=== PATIENT | male | born 1930 | race Two or more races ===

== ENCOUNTER → 2017-01-28 | Outpatient (CLI) | payer MEDICARE, OTHER ==
--- NOTE | 2017-01-31 11:31 | RADIOLOGY REPORT (SQ) ---
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 RADIONUCLIDE AND DOSE: 12.0 mCi F18 FDG The route of agent administration: Intravenous FASTING BLOOD SUGAR: 100 mg/dl CONTRAST TYPE AND DOSE: No CT contrast given. TECHNIQUE: Blood glucose level was verified. Above dose of FDG was injected intravenously. 2-D seg mented attenuation correction images were obtained from the base of the skull to the midthighs. Nonc ontrast CT images were obtained for attenuation correction and fusion with emission images. CT image s were performed without oral or intravenous contrast and are not sensitive for parenchymal lesions. A series of overlapping emission PET images were obtained. Images reviewed and manipulated at [facility] work station by the radiologist. Images stored on PACS. LIMITATIONS: None. FINDINGS: HEAD AND NECK: Left supraclavicular lymph node adjacent to the thyroid with mean SUV value 1.75. Prior value 6.9. CHEST: Previously seen small left pleural effusion has resolved. Generally improved aeration in the lungs. Underlying scarring. No pulmonary nodules or masses. No adenopathy. No abnormal metabolic activity. ABDOMEN AND PELVIS: Previously seen right retrocrural lymph node has decreased in size and currently demonstrates no detectable increased activity. Retrocaval lymph node with mean SUV value 3.6. Prior value 5.1. Lymph node adjacent to the aorta and anterior to the inferior vena cava currently measur es 6 mm with no detectable metabolic activity. Previous measurement 1.8 cm with SUV 5.8. Lymph node s posterior to the right common iliac artery measure 1.5 cm with mean SUV value 3.29. Prior SUV valu e 6.8. Bulky lymph nodes along the right iliac chain with maximum measurement of 2 cm and maximum BERRY V value 4.36. Prior value 9.1. Lymph nodes in the right inguinal region have generally decreased in size. The largest measures 2.5 x 3.5 cm. Mean SUV value 5.41 with prior value 10.0. PROXIMAL LOWER EXTREMITIES: No areas of abnormal metabolic activity in the soft tissues of the lower extremities. CT images demonstrate asymmetric subcutaneous edema in the soft tissues of the upper ri ght lower extremity. Similar but more prominent compared to the prior study. BONES: No abnormal metabolic activity in the visualized skeleton. ADDITIONAL CT FINDINGS: Chronic pulmonary fibrosis. Renal cysts. Radiotherapy implants in the prost ate. Chronic degenerative changes in the spine with interval kyphoplasty. OTHER: No other significant findings. IMPRESSION: 1. ADENOPATHY DESCRIBED WHICH HAS GENERALLY IMPROVED COMPARED TO THE MOST RECENT PET SCAN. 2. ASYMMETRIC EDEMA IN THE SUBCUTANEOUS SOFT TISSUES OF THE UPPER RIGHT LOWER EXTREMITY. SIMILAR TO THE PRIOR CT BUT SLIGHTLY MORE PROMINENT. THIS MAY BE RELATED TO OBSTRUCTED LYMPHATIC OR VENOUS DRAI NAGE. 3. STABLE INCIDENTAL CT FINDINGS DESCRIBED. IMPROVED APPEARANCE OF THE CHEST WITH IMPROVED AERATI ON IN THE LUNGS AND RESOLUTION OF THE PREVIOUSLY SEEN SMALL LEFT PLEURAL EFFUSION. TECHNICAL DOCUMENTATION: JOB ID: [id number] [employer]- All Rights Reserved
== END ==
LOC: RAD 16:19
PROVIDERS: ATTEND Internal Medicine Medical Oncology
DX: C61 Malignant neoplasm of prostate (principal); C79.51 Secondary malignant neoplasm of bone
CPT/HCPCS: 78815; A9552

== ENCOUNTER → 2017-02-04 | Outpatient (CLI) | payer OTHER ==
--- NOTE | 2017-02-04 16:43 | RADIOLOGY REPORT (SQ) ---
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 The route of agent administration: Intravenous. ADDITIONAL DRUGS AND DOSES: None. TECHNIQUE: Routine delayed images at 3 hours post radionuclide injection acquired of the bony skelet on including anterior and posterior whole-body projections and additional focused images as needed. LIMITATIONS: Patient was unable to tolerate imaging to include the peak and lower legs. Motion cassi fact over the calvarium. FINDINGS: BONES: There is bandlike increased uptake at L4 worrisome for osteoporotic compression def ormity. Similar findings are present along the upper endplate of the L5 vertebral body, and in the m id thoracic spine at about the T7 level. No skeletal uptake worrisome for bony metastatic disease. KIDNEYS: Symmetric excretion without obstruction. OTHER: There is diffuse soft tissue swelling and retention of agent throughout the right leg likely d ue to disrupted lymphatic circulation from inguinal and iliac adenopathy. 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 COMMENT: PQRS 3570F: Current bone scan is compared with any available plain radiographs, prior bone scans, and CT/MRI. TECHNICAL DOCUMENTATION: JOB ID: [id number] All Rights Reserved
== END ==
LOC: RAD 09:27
PROVIDERS: ATTEND Internal Medicine Medical Oncology
DX: C61 Malignant neoplasm of prostate (principal); C79.51 Secondary malignant neoplasm of bone
CPT/HCPCS: 78306; A9561; Q9969

== ENCOUNTER 2017-02-13 10:23 | Inpatient (IN) | payer OTHER, MEDICARE ==
[2017-02-13] MEDS ORDERED: NORMAL SALINE 1000 ML 300 ML IV ONE (10:40)
--- NOTE | 2017-02-13 10:59 | ER Document Report ---
ED General - General Stated Complaint: ALTERED MENTAL STATUS Time Seen by Provider: 02/13/17 10:36 Mode of Arrival: Medic Information source: Patient, Relative, Emergency Med Personnel TRAVEL OUTSIDE OF THE [place] IN LAST 30 DAYS: No - HPI Onset: This morning - 4 AM Onset/Duration: Constant, Waxing and waning Severity: None Associated symptoms: Fever, Weakness, Other - CONFUSED Exacerbated by: Denies Relieved by: Denies Similar symptoms previously: Yes - NOT RECENT Recently seen / treated by doctor: No - Related Data Allergies/Adverse Reactions: No Known Drug Allergies Allergy (Verified 02/13/17 11:01) Home Medications: Current Home Medications Oxycodone HCl/Acetaminophen [Oxycodone-Acetaminophen 5-325] 1 each PO Q8 PRN [History] Prednisone 5 mg PO BID 02/13/17 [History] Simvastatin 20 mg PO QHS 02/13/17 [History] Past Medical History - General Information source: Patient, Relative - Social History Smoking Status: Unknown if Ever Smoked Cigarette use (# per day): No Chew tobacco use (# tins/day): No Frequency of alcohol use: None Drug Abuse: None Lives with: Family Family History: Reviewed & Not Pertinent - Past Medical History Cardiac Medical History: Reports: Hx Hypercholesterolemia, Hx Hypertension Denies: Hx Coronary Artery Disease, Hx Heart Attack Pulmonary Medical History: Reports: Hx Pneumonia Denies: Hx Asthma, Hx Bronchitis, Hx COPD Neurological Medical History: Denies: Hx Cerebrovascular Accident, Hx Seizures Endocrine Medical History: Reports: None Renal/ Medical History: Reports: None Malignancy Medical History: Reports Hx Prostate Cancer GI Medical History: Reports: Hx Gastroesophageal Reflux Disease, Hx Hepatitis - HEP C APPX 12 MOS AGO. Denies: Hx Hiatal Hernia, Hx Ulcer Musculoskeltal Medical History: Denies Hx Arthritis Psychiatric Medical History: Denies: Hx Depression Infectious Medical History: Reports: Hx Hepatitis - HEP C APPX 12 MOS AGO Past Surgical History: Reports: Hx Genitourinary Surgery - radiation seed implant. Denies: Hx Open Heart Surgery, Hx Pacemaker - Immunizations Hx Diphtheria, Pertussis, Tetanus Vaccination: No Hx Pneumococcal Vaccination: 08/22/05 Review of Systems - Review of Systems Constitutional: Diaphoresis, Fever EENT: No symptoms reported Cardiovascular: No symptoms reported Respiratory: No symptoms reported Gastrointestinal: No symptoms reported Genitourinary: No symptoms reported Musculoskeletal: No symptoms reported Skin: No symptoms reported Neurological/Psychological: Confusion -: Yes All other systems reviewed and negative Physical Exam - Vital signs Vitals: Temp 98.1 F 02/13/17 10:23 Interpretation: Hypotensive, Tachycardic, Febrile - General General appearance: Lethargic In distress: None - HEENT Head: Normocephalic Eyes: Pale conjunctiva Pupils: PERRL Ears: Normal Nasal: Normal Mouth/Lips: Normal Mucous membranes: Dry Pharynx: Normal Neck: Normal, Supple - Respiratory Respiratory status: No respiratory distress, Other - POOR INSPIRATORY EFFORT Breath sounds: Decreased air movement - RIGHT Chest palpation: Normal - Cardiovascular Rhythm: Regular, Tachycardia Heart sounds: Normal auscultation Murmur: No - Abdominal Inspection: Normal Distension: No distension - Extremities General upper extremity: Normal inspection General lower extremity: No: Normal inspection - STASIS DERMATITIS R. L.E. - Neurological Cognition: Confused - EARLIER, NOW RESOLVED Speech: Normal Cranial nerves: Normal Motor strength normal: LUE, RUE - Skin Skin Temperature: Warm Skin Moisture: Dry Skin Color: Normal, Hyperpigmentation - R. L.E. Skin Turgor: Elastic Course - Vital Signs Vital signs: Temp Pulse Resp BP Pulse Ox 98.1 F 14 94/49 L 97 02/13/17 10:29 02/13/17 11:01 02/13/17 10:35 02/13/17 11:01 - Laboratory Result Diagrams: 02/13/17 10:35 02/13/17 10:35 Laboratory results interpreted by me: 02/13/17 02/13/17 10:35 10:35 WBC 0.6 L* RBC 2.77 L Hgb 9.6 L Hct 28.4 L MCV 102 H MCH 34.6 H RDW 19.5 H Plt Count 94 L Seg Neutrophils % 20.6 L Monocytes % 41.3 H Absolute Neutrophils 0.1 L Absolute Lymphocytes 0.2 L Sodium 131.3 L Potassium 3.0 L* BUN 23 H Calcium 7.6 L Total Bilirubin 2.1 H Total Protein 4.4 L Albumin 2.3 L - Diagnostic Test Radiology reviewed: Image reviewed, Reports reviewed - EKG Interpretation by Me EKG shows normal: Sinus rhythm, Rhodes, Intervals, ST-T Waves. 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 Time consulted: 11:46 Consulted provider: will come to ER Discharge - Discharge Clinical Impression: Prostate cancer, Delirium Sepsis Qualifiers: Sepsis type: sepsis due to unspecified organism Qualified Code(s): A41.9 - Sepsis, unspecified organism Fever Qualifiers: Fever type: unspecified Qualified Code(s): R50.9 - Fever, unspecified Hypotension Qualifiers: Hypotension type: unspecified hypotension type Qualified Code(s): I95.9 - Hypotension, unspecified Neutropenia Qualifiers: Neutropenia type: unspecified Qualified Code(s): D70.9 - Neutropenia, unspecified Condition: Serious Disposition: ADMITTED INPATIENT Admitting Provider: Hospitalist Referrals: AMANDO SILVA DO [Primary Care Provider] - Follow up as needed
[2017-02-13] MEDS ORDERED: DEXTROSE 5%-WATER 250 ML with NOREPINEPHRINE BITARTRATE 4 MG IV PRN ×4 (11:07→15:09)
[2017-02-13] MEDS ORDERED: CEFEPIME 2 GM/D5W RTU 50 ML IV ONE (11:16)
[2017-02-13 11:18] LABS: ALANINE AMINOTRANSFERASE 27 U/L (21-72); ALBUMIN 2.3 g/dL (3.5-5.0); ALKALINE PHOSPHATASE 45 U/L (38-126); ANION GAP 7 (5-19); ASPARTATE AMINO TRANSFERASE 27 U/L (17-59); BILIRUBIN,DIRECT 0.3 mg/dL (0.0-0.4); BILIRUBIN,TOTAL 2.1 mg/dL (0.2-1.3); BLOOD UREA NITROGEN 23 mg/dL (7-20); CALCIUM 7.6 mg/dL (8.4-10.2); CARBON DIOXIDE 23 mmol/L (22-30); CHLORIDE 101 mmol/L (98-107); CREATINE KINASE 57 U/L (55-170); CREATININE RESULT 0.83 mg/dL (0.52-1.25); GLUCOSE 90 mg/dL (75-110); SODIUM 131.3 mmol/L (137-145); TOTAL PROTEIN 4.4 g/dL (6.3-8.2)
[2017-02-13] MEDS ORDERED: NOREPINEPHRINE BITARTRATE INJ/PF 4 MG/4 ML SDV IV ONE (11:22)
[2017-02-13 11:27] LABS: ABSOLUTE LYMPHOCYTES (AUTO) 0.2 10^3/uL (0.5-4.7); ABSOLUTE MONOCYTES (AUTO) 0.2 10^3/uL (0.1-1.4); ABSOLUTE NEUT (AUTO) 0.1 10^3/uL (1.7-8.2); BASOPHILS % (AUTO) 0.2 % (0-2); EOSINOPHILS % (AUTO) 0.2 % (0-6); HEMATOCRIT 28.4 % (37.9-51.0); HEMOGLOBIN 9.6 g/dL (13.5-17.0); HGB HCT DIFFERENCE 0.4; LYMPHOCYTES % (AUTO) 37.7 % (13-45); MEAN CORPUSCULAR HEMOGLOBIN 34.6 pg (27.0-33.4); MEAN CORPUSCULAR HGB CONC 33.7 g/dL (32.0-36.0); MEAN CORPUSCULAR VOLUME 102 fl (80-97); MONOCYTES % (AUTO) 41.3 % (3-13); RED BLOOD COUNT 2.77 10^6/uL (4.35-5.55); RED CELL DISTRIBUTION WIDTH 19.5 % (11.5-14.0)
[2017-02-13 11:30] LABS: CREATINE KINASE MB 0.68 ng/mL (<4.55)
[2017-02-13 11:31] LABS: TROPONIN I 0.151 ng/mL
--- NOTE | 2017-02-13 11:35 | RADIOLOGY REPORT (SQ) ---
EXAM DESCRIPTION: CHEST SINGLE VIEW COMPLETED DATE/TIME: 02/13/2017 11:15 am REASON FOR STUDY: FEVER, ALTERED MENTAL STATUS COMPARISON: 05/08/2015 EXAM PARAMETERS: NUMBER OF VIEWS: One view. TECHNIQUE: Single frontal radiographic view of the chest acquired. RADIATION DOSE: NA LIMITATIONS: None. FINDINGS: LUNGS AND PLEURA: Scarring in the right apex. No acute opacities. No effusions. MEDIASTINUM AND HILAR STRUCTURES: No masses. Contour normal. HEART AND VASCULAR STRUCTURES: Heart normal in size. Normal vasculature. BONES: No acute findings. HARDWARE: None in the chest. OTHER: No other significant finding. IMPRESSION: NO ACUTE RADIOGRAPHIC FINDING IN THE CHEST. TECHNICAL DOCUMENTATION: JOB ID: [id number]
[2017-02-13] MEDS ORDERED: MAGNESIUM HYDROXIDE SUSP 30 ML UDCUP PO PRN (11:46)
[2017-02-13] MEDS ORDERED: ACETAMINOPHEN 325 MG TABLET PO PRN (11:46)
[2017-02-13] MEDS ORDERED: IPRATROPIUM/ALBUTEROL 0.5-2.5 MG/3 ML AMPUL NEB PRN (11:46)
[2017-02-13] MEDS ORDERED: ONDANSETRON HCL INJ/PF 4 MG/2 ML SDV IV PRN (11:46)
[2017-02-13 11:48] LABS: ANISOCYTOSIS 1+
[2017-02-13 11:49] LABS: OVALOCYTES SLIGHT; POIKILOCYTOSIS SLIGHT; POLYCHROMASIA SLIGHT
[2017-02-13 11:52] LABS: WHITE BLOOD COUNT 0.6 10^3/uL (4.0-10.5)
[2017-02-13 11:53] LABS: SEGMENTED NEUTROPHILS % (AUTO) 20.6 % (42-78)
[2017-02-13 12:00] LABS: APPEARANCE,URINE CLEAR; BILIRUBIN,URINE NEGATIVE (NEGATIVE); GLUCOSE, URINE NEGATIVE (NEGATIVE); KETONES,URINE NEGATIVE (NEGATIVE); LEUKOCYTE ESTERASE,URINE NEGATIVE (NEGATIVE); NITRITE,URINE NEGATIVE (NEGATIVE); PROTEIN,URINE NEGATIVE (NEGATIVE); URINE SPECIFIC GRAVITY 1.012; UROBILINOGEN,URINE NEGATIVE mg/dL (<2.0)
[2017-02-13 12:05] LABS: WBC,URINE 0-1 /HPF
[2017-02-13] MEDS ORDERED: VANCOMYCIN HCL 0 MG in DEXTROSE 5%-WATER 250 ML IV NR (12:15)
[2017-02-13] MEDS ORDERED: ERTAPENEM SODIUM 1 GM in NORMAL SALINE 50 ML IV SCH (12:15)
[2017-02-13] MEDS ORDERED: VANCOMYCIN HCL 1,500 MG in DEXTROSE 5%-WATER 250 ML IV ONE (13:00)
[2017-02-13] MEDS ORDERED: POTASSIUM CHLORIDE 10 MEQ TABLET.SA PO ONE (13:00)
[2017-02-13] MEDS ORDERED: POTASSI CL 20 MEQ/50 ML RIDER 20 MEQ/50 ML RTUPB IV SCH (13:00)
[2017-02-13] MEDS ORDERED: MORPHINE SULFATE 10 MG/ML INJ IV PRN (14:03)
[2017-02-13] MEDS ORDERED: OXYCODONE-ACETAMINOPHEN 5-325 MG TABLET PO PRN (14:38)
--- NOTE | 2017-02-13 14:38 | PDOC H&P ---
History of Present Illness Admission Date/PCP: 02/13/17 12:41 AMANDO SILVA DO Patient complains of: Fever, weakness and confusion History of Present Illness: AARTI BARON is a 86 year old male past medical history metastatic prostate cancer, on systemic chemotherapy, essential hypertension and dyslipidemia; presents with fever, weakness and confusion since 4 AM this morning. Patient seen by Dr. Story, he has no other primary care physician. His last chemotherapy was a week ago on Tuesday. He denies any cough, chest congestion , nausea, vomiting diarrhea or dysuria. He has had prior episodes of neutropenic fever in the past. He was found to have temperature on arrival of 101 tympanic, heart rate in the 120s systolic blood pressure in the 80-90 systolic range. Blood pressure did improve with IV fluid bolus by the ER provider. He is presently awake, alert and able to answer questions. He has been started on IV broad-spectrum antibiotics after blood cultures were obtained. Past Medical History Cardiac Medical History: Reports: Hyperlipidema, Hypertension Denies: Coronary Artery Disease, Myocardial Infarction Pulmonary Medical History: Reports: Pneumonia Denies: Asthma, Bronchitis, Chronic Obstructive Pulmonary Disease (COPD) EENT Medical History: Reports: None Neurological Medical History: Reports: None Denies: Seizures Endocrine Medical History: Reports: None Renal/ Medical History: Reports: None Malignancy Medical History: Reports: Other - metastatic prostrate cancer GI Medical History: Reports: Gastroesophageal Reflux Disease, Hepatitis - HEP C APPX 12 MOS AGO Denies: Hiatal Hernia Musculoskeltal Medical History: Denies: Arthritis Skin Medical History: Reports: Other - Extensive radiation changes to right lower extremity. Psychiatric Medical History: Reports: None Denies: Depression Traumatic Medical History: Reports: None Hematology: Denies: Anemia Infectious Medical History: Reports: None Past Surgical History Past Surgical History: Denies: Pacemaker Social History Information Source: Patient, Relative Lives with: Family, Spouse/Significant other Smoking Status: Unknown if Ever Smoked Frequency of Alcohol Use: None Hx Recreational Drug Use: No Hx Prescription Drug Abuse: No - Advance Directive Resuscitation Status: Do Not Resuscitate Family History Family History: Hyperlipidemia, Hypertension Parental Family History Reviewed: Yes Children Family History Reviewed: Yes Sibling(s) Family History Reviewed.: Yes Medication/Allergy Home Medications: Meclizine HCl 25 mg PO Q8 PRN 09/08/14 Omeprazole 20 mg PO BID 09/08/14 Oxycodone HCl/Acetaminophen [Oxycodone-Acetaminophen 5-325] 1 each PO Q8 PRN Prednisone 5 mg PO BID 02/13/17 Simvastatin 20 mg PO QHS 02/13/17 Allergies/Adverse Reactions: No Known Drug Allergies Allergy (Verified 02/13/17 11:01) Review of Systems Constitutional: PRESENT: anorexia, chills, fatigue, fever(s), weakness Eyes: PRESENT: as per HPI Ears: ABSENT: hearing changes Cardiovascular: ABSENT: chest pain, dyspnea on exertion, edema, orthropnea, palpitations Respiratory: ABSENT: cough, hemoptysis Gastrointestinal: ABSENT: abdominal pain, constipation, diarrhea, hematemesis, hematochezia, nausea, vomiting Genitourinary: PRESENT: difficulty urinating Musculoskeletal: PRESENT: back pain, deformity - right lower leg Integumentary: ABSENT: rash, wounds Neurological: ABSENT: abnormal gait, abnormal speech, confusion, dizziness, focal weakness, syncope Psychiatric: ABSENT: anxiety, depression, homidical ideation, suicidal ideation Endocrine: ABSENT: cold intolerance, heat intolerance, polydipsia, polyuria Hematologic/Lymphatic: PRESENT: easy bruising Physical Exam Vital Signs: Temp Pulse Resp BP Pulse Ox 101.1 F H 14 106/42 L 98 02/13/17 13:40 02/13/17 13:40 02/13/17 13:40 02/13/17 13:40 General appearance: PRESENT: no acute distress, hard of hearing, thin, well- developed, other - elderly, frail Head exam: PRESENT: atraumatic, normocephalic Eye exam: PRESENT: conjunctiva pale, PERRLA Ear exam: PRESENT: normal external ear exam Mouth exam: PRESENT: dry mucosa, neck supple, tongue midline Teeth exam: PRESENT: edentulous Neck exam: ABSENT: carotid bruit, JVD, lymphadenopathy, thyromegaly Respiratory exam: PRESENT: clear to auscultation aracely, decreased breath sounds, symmetrical, unlabored. ABSENT: rales, rhonchi, wheezes Cardiovascular exam: PRESENT: RRR, tachycardia Pulses: PRESENT: normal carotid pulses, normal radial pulses Vascular exam: PRESENT: normal capillary refill GI/Abdominal exam: PRESENT: normal bowel sounds, soft. ABSENT: distended, guarding, mass, organolmegaly, rebound, tenderness Rectal exam: PRESENT: deferred Extremities exam: PRESENT: full ROM. ABSENT: calf tenderness, clubbing, pedal edema Musculoskeletal exam: PRESENT: ambulatory, other - right lower extremity Neurological exam: PRESENT: alert, awake, oriented to person, oriented to place , oriented to situation, CN II-XII grossly intact Psychiatric exam: PRESENT: appropriate affect, normal mood Skin exam: PRESENT: pallor, other Results Impressions: Chest X-Ray 02/13/17 10:39 IMPRESSION: NO ACUTE RADIOGRAPHIC FINDING IN THE CHEST. Assessment & Plan - Diagnosis (1) Neutropenic fever Is this a current diagnosis for this admission?: YesPlan: Patient will be placed on broad culture IV antibiotics after urine and blood cultures were obtained. Oncology will be consulted for neutropenia. Patient will be placed in reverse isolation. Family updated on this as well (2) Sepsis Qualifiers: Sepsis type: sepsis due to unspecified organism Qualified Code(s): A41.9 - Sepsis, unspecified organism Is this a current diagnosis for this admission?: YesPlan: IV broad spectrum antibiotic, patient was given aggressive IV hydration by the ER provider with improvement of his blood pressure to systolic of 110. Will continue to hydrate (3) Hypotension Qualifiers: Hypotension type: unspecified hypotension type Qualified Code(s): I95.9 - Hypotension, unspecified Is this a current diagnosis for this admission?: YesPlan: Secondary to infection and dehydration. (4) Hyponatremia Is this a current diagnosis for this admission?: YesPlan: Likely secondary to decreased oral intake over the last week according to family. Will continue to gently rehydrate with IV fluids (5) Hypokalemia Is this a current diagnosis for this admission?: YesPlan: Will replete and monitor (6) HLD (hyperlipidemia) Qualifiers: Hyperlipidemia type: unspecified Qualified Code(s): E78.5 - Hyperlipidemia, unspecified Is this a current diagnosis for this admission?: YesPlan: Will continue statin (7) Metastasis to bone Is this a current diagnosis for this admission?: YesPlan: Prn analagesics (8) DNR (do not resuscitate) Is this a current diagnosis for this admission?: YesPlan: Patient has written DNR order - Time Time Spent: 50 to 70 Minutes Critical Time spent with patient: 35 or more minutes Medications reviewed and adjusted accordingly: Yes
[2017-02-13] MEDS ORDERED: ACETAMINOPHEN 650 MG SUPP.RECT PR PRN (14:39)
[2017-02-13] MEDS ORDERED: NORMAL SALINE 1000 ML 1,000 ML IV ONE (14:58)
[2017-02-13] MEDS ORDERED: PIPERACILLIN SODIUM/TAZOBACTAM 3.375 GM in NORMAL SALINE 100 ML IV SCH (15:00)
--- NOTE | 2017-02-13 15:16 | EKG REPORT ---
SEVERITY:- ABNORMAL ECG - SINUS TACHYCARDIA RIGHT BUNDLE BRANCH BLOCK : Confirmed by: Irene Flores 13-Feb-2017 15:15:18
[2017-02-13] MEDS: POTASSI CL 20 MEQ/50 ML RIDER 20 MEQ/50 ML RTUPB IV SCH ×3 (15:42→20:29)
[2017-02-13] MEDS ORDERED: HYDROCORTISONE SOD SUCCINATE INJ/PF 100 MG/2 ML SDV IV SCH ×3 (18:00→22:00)
[2017-02-13] MEDS ORDERED: PREDNISONE 5 MG TABLET PO SCH (18:00)
[2017-02-13] MEDS ORDERED: DOCUSATE SODIUM 100 MG/10 ML UDC PO SCH (18:00)
[2017-02-13] MEDS: LANSOPRAZOLE 30 MG TAB.RAP.DR PO SCH (18:02)
[2017-02-13] MEDS: DOCUSATE SODIUM 100 MG CAPSULE PO SCH (18:02)
[2017-02-13] MEDS ORDERED: FILGRASTIM INJ 300 MCG/1 ML VIAL SUBCUT ONE (18:59)
[2017-02-13] MEDS ORDERED: HYDROCORTISONE SOD SUCCINATE INJ/PF 100 MG/2 ML SDV IV ONE (19:00)
[2017-02-13 19:42] LABS: ANION GAP 9 (5-19); BLOOD UREA NITROGEN 25 mg/dL (7-20); CARBON DIOXIDE 16 mmol/L (22-30); CHLORIDE 109 mmol/L (98-107); CREATININE RESULT 0.81 mg/dL (0.52-1.25); GLUCOSE 90 mg/dL (75-110); POTASSIUM 3.8 mmol/L (3.6-5.0)
[2017-02-13 19:50] LABS: CALCIUM 6.9 mg/dL (8.4-10.2)
[2017-02-13] MEDS: LEVOFLOXACIN 750 MG/D5W RTU 750 MG/150 ML RTUPB IV SCH (19:59)
[2017-02-13] MEDS: POTASSI CL 20 MEQ/NS 1L 1,000 ML IV PRN (20:01)
[2017-02-13] MEDS ORDERED: MAGNESIUM SULFATE/D5W 1 GM/100 ML RTUPB IV ONE (20:45)
[2017-02-13] MEDS: SIMVASTATIN 10 MG TABLET PO SCH (21:12)
[2017-02-13] MEDS ORDERED: CEFEPIME 2 GM/D5W RTU 2 GM/50 ML RTUPB IV ONE (21:31)
[2017-02-13] MEDS ORDERED: VANCOMYCIN HCL INJ 1000 MG VIAL ONE (21:31)
[2017-02-13] MEDS: CEFEPIME 2 GM/D5W RTU 2 GM/50 ML RTUPB IV SCH (21:39)
[2017-02-13] MEDS ORDERED: SIMVASTATIN 40 MG TABLET PO SCH (22:00)
[2017-02-13] MEDS: VANCOMYCIN HCL 750 MG in DEXTROSE 5%-WATER 250 ML IV SCH (23:00)
[2017-02-14] MEDS: HYDROCORTISONE SOD SUCCINATE INJ/PF 100 MG/2 ML SDV IV SCH ×3 (01:10→17:23)
[2017-02-14] MEDS: ACETAMINOPHEN SOLN 325 MG/10.15 ML UDCUP PO PRN (02:37)
[2017-02-14] MEDS: LANSOPRAZOLE 30 MG TAB.RAP.DR PO SCH ×2 (06:06→17:23)
[2017-02-14 07:57] LABS: ANION GAP 7 (5-19); BLOOD UREA NITROGEN 24 mg/dL (7-20); CALCIUM 7.3 mg/dL (8.4-10.2); CARBON DIOXIDE 19 mmol/L (22-30); CHLORIDE 106 mmol/L (98-107); CREATININE RESULT 0.73 mg/dL (0.52-1.25); GLUCOSE 93 mg/dL (75-110); MAGNESIUM 1.7 mg/dL (1.6-2.3); SODIUM 131.7 mmol/L (137-145)
[2017-02-14] MEDS ORDERED: MAGNESIUM SULFATE/D5W 1 GM/100 ML RTUPB IV ONE (09:00)
[2017-02-14] MEDS ORDERED: ENOXAPARIN SODIUM INJ 30 MG/0.3 ML DISP.SYRIN SUBCUT SCH (10:00)
[2017-02-14] MEDS: POTASSI CL 20 MEQ/NS 1L 1,000 ML IV PRN (10:38)
[2017-02-14] MEDS: CEFEPIME 2 GM/D5W RTU 2 GM/50 ML RTUPB IV SCH ×2 (10:41→21:02)
[2017-02-14] MEDS: DOCUSATE SODIUM 100 MG CAPSULE PO SCH ×2 (10:50→17:24)
[2017-02-14] MEDS: VANCOMYCIN HCL 750 MG in DEXTROSE 5%-WATER 250 ML IV SCH (12:28)
[2017-02-14 15:04] LABS: ABSOLUTE LYMPHOCYTES (AUTO) 0.1 10^3/uL (0.5-4.7); ABSOLUTE MONOCYTES (AUTO) 0.1 10^3/uL (0.1-1.4); ABSOLUTE NEUT (AUTO) 0.5 10^3/uL (1.7-8.2); BASOPHILS % (AUTO) 0.4 % (0-2); EOSINOPHILS % (AUTO) 0.8 % (0-6); HEMATOCRIT 28.1 % (37.9-51.0); HEMOGLOBIN 9.6 g/dL (13.5-17.0); HGB HCT DIFFERENCE 0.7; LYMPHOCYTES % (AUTO) 16.9 % (13-45); MEAN CORPUSCULAR HEMOGLOBIN 34.9 pg (27.0-33.4); MEAN CORPUSCULAR HGB CONC 34.2 g/dL (32.0-36.0); MEAN CORPUSCULAR VOLUME 102 fl (80-97); MONOCYTES % (AUTO) 15.7 % (3-13); RED BLOOD COUNT 2.75 10^6/uL (4.35-5.55); SEGMENTED NEUTROPHILS % (AUTO) 66.2 % (42-78)
--- NOTE | 2017-02-14 15:05 | RADIOLOGY REPORT (SQ) ---
EXAM DESCRIPTION: PICC INSERTION; U/S GUIDE FOR VASCULAR ACCESS COMPLETED DATE/TIME: 02/14/2017 2:50 pm REASON FOR STUDY: PICC line placement; PICC LINE PLACEMENT COMPARISON: Chest films 02/13/2017 FLUOROSCOPY TIME: Bedside, no fluoroscopy was used On ultrasound and 4 digital chest images saved to PACS. TECHNIQUE: Fluoroscopic and ultrasound guided PICC placement. LIMITATIONS: None. PROCEDURE: Consent was obtained. Ultrasound was used on the patient's left arm for PICC access. The left arm was prepped and draped in a sterile fashion along with the ultrasound probe. The entry site was anesthetized with 2.5 mL of 1% lidocaine. A 21 gauge 7 cm needle was advanced through the skin a nd into the left basilic vein under live ultrasound guidance. An ultrasound image was saved to PACS confirming access site. A .018 guide wire was then inserted through the needle and into the venous s ystem. The needle was the removed and an 11 blade scalpel was used to make a 1cm skin incision. A 5 fr peel-away sheath was advanced over the wire and into the venous system. A measurement was then mad e using the existing wire and live fluoroscopic guidance. The wire was then removed and the trimmed. The PICC was advanced through the peel-away sheath and into the venous system. The peel-away sheath w as removed and the catheter was adhered to the patients arm with a stat lock. The catheter was then a spirated and flushed and a sterile bandage was placed over the access site. A fluoroscopic spot imag e was saved to PACS confirming the catheter tip within the superior vena cava. IMPRESSION: SUCCESSFUL PLACEMENT OF A 5 FR DUAL LUMEN 41 CM PICC IN THE left basilic VEIN. COMMENT: Patient medication list reviewed: Yes- Quality ID# [id number]:Eligible professional attests to doc umenting in the medical record they obtained, updated, or reviewed the patient's current medications. . Quality ID 145: Final reports for procedures using fluoroscopy that document radiation exposure es aylin, or exposure time and number of fluorographic images (if radiation exposure indices are not avail able) Quality ID #76: The patient was prepped and draped using maximum sterile barrier technique including cap, mask, sterile gown, sterile gloves, a large sterile sheet, hand hygiene, and 2% Chlorhexidine fo r cutaneous antisepsis. When ultrasound is used, sterile ultrasound techniques are followed requiring sterile gel and sterile probes. TECHNICAL DOCUMENTATION: JOB ID: [id number] [employer] All Rights Reserved
[2017-02-14] MEDS ORDERED: ONDANSETRON HCL INJ/PF 4 MG/2 ML SDV IV PRN (15:07)
[2017-02-14] MEDS ORDERED: MAGNESIUM HYDROXIDE SUSP 30 ML UDCUP PO PRN (15:08)
[2017-02-14 15:29] LABS: WHITE BLOOD COUNT 0.7 10^3/uL (4.0-10.5)
[2017-02-14 15:32] LABS: BURR CELLS 1+; OVALOCYTES 2+; POIKILOCYTOSIS 2+; ROULEAUX SLIGHT; SCHISTOCYTES SLIGHT; TOXIC GRANULATION 2+
--- NOTE | 2017-02-14 15:51 | PDOC PROGRESS REPORT ---
Subjective Progress Note for:: 02/14/17 Subjective:: Patient is seen on morning rounds. He is resting comfortably in bed. He remains in reverse isolation in the ICU due to neutropenic fever. He was able to be wean off vasopressor overnight. His hypotension and fever has resolved. He denies any shortness of breath, cough or dyspnea. He has been able to eat and drink without nausea or vomiting. He had one episode of diarrhea last night. Stool was sent for cdiff which is reported as negative. He has had no further diarrhea. He denies any dysuria prior to admission. He admits to not eating or drinking much for the last 4 days prior to admission. He has chronic lymphedema and skin changes in the right lower leg from radiation therapy. He states this is unchanged from previously. His or son are not at the bedside at the present time. Physical Exam Vital Signs: Temp Pulse Resp BP Pulse Ox 98.8 F 112 H 12 98/67 L 97 02/14/17 14:00 02/14/17 07:46 02/14/17 14:00 02/14/17 13:45 02/14/17 14:00 Intake & Output 02/13/17 02/14/17 02/15/17 06:59 06:59 06:59 Intake Total 4218 60 Output Total 1075 224 Balance 3143 -164 Weight 74.7 kg General appearance: PRESENT: no acute distress, thin, well-developed, well- nourished, other - elderly and frail Head exam: PRESENT: atraumatic, normocephalic Eye exam: PRESENT: conjunctiva pale, PERRLA Ear exam: PRESENT: normal external ear exam Mouth exam: PRESENT: moist, neck supple, tongue midline Neck exam: ABSENT: carotid bruit, JVD, lymphadenopathy, thyromegaly Respiratory exam: PRESENT: clear to auscultation aracely, symmetrical, unlabored. ABSENT: rales, rhonchi, wheezes Cardiovascular exam: PRESENT: RRR. ABSENT: diastolic murmur, rubs, systolic murmur Pulses: PRESENT: normal carotid pulses, normal radial pulses Vascular exam: PRESENT: normal capillary refill GI/Abdominal exam: PRESENT: normal bowel sounds, soft Rectal exam: PRESENT: deferred Extremities exam: PRESENT: full ROM, other - +3 edema of the right leg, with chronic skin changes from radiation therapy Neurological exam: PRESENT: alert, awake, oriented to person, oriented to place , CN II-XII grossly intact. ABSENT: motor sensory deficit Psychiatric exam: PRESENT: appropriate affect, normal mood. ABSENT: homicidal ideation, suicidal ideation Skin exam: PRESENT: dry - right lower leg, erythema, warm Results Laboratory Results: 02/14/17 14:50 02/14/17 07:23 02/13/17 02/13/17 02/13/17 19:02 19:02 19:02 WBC RBC Hgb Hct MCV MCH MCHC RDW Plt Count Seg Neutrophils % Lymphocytes % Monocytes % Eosinophils % Basophils % Absolute Neutrophils Absolute Lymphocytes Absolute Monocytes Absolute Eosinophils Absolute Basophils Sodium 134.0 L Potassium 3.8 Chloride 109 H Carbon Dioxide 16 L Anion Gap 9 BUN 25 H Creatinine 0.81 Est GFR ( Amer) > 60 Est GFR (Non-Af Amer) > 60 Glucose 90 Calcium 6.9 L* Magnesium 1.5 L Albumin 2.3 L Stool Occult Blood Stool for White Cells 02/13/17 02/13/17 02/14/17 21:09 21:09 06:37 WBC Cancelled RBC Cancelled Hgb Cancelled Hct Cancelled MCV Cancelled MCH Cancelled MCHC Cancelled RDW Cancelled Plt Count Cancelled Seg Neutrophils % Cancelled Lymphocytes % Cancelled Monocytes % Cancelled Eosinophils % Cancelled Basophils % Cancelled Absolute Neutrophils Cancelled Absolute Lymphocytes Cancelled Absolute Monocytes Cancelled Absolute Eosinophils Cancelled Absolute Basophils Cancelled Sodium Potassium Chloride Carbon Dioxide Anion Gap BUN Creatinine Est GFR ( Amer) Est GFR (Non-Af Amer) Glucose Calcium Magnesium Albumin Stool Occult Blood NEGATIVE Stool for White Cells NO WBCs SEEN 02/14/17 02/14/17 02/14/17 06:37 07:23 14:50 WBC 0.7 L* RBC 2.75 L Hgb 9.6 L Hct 28.1 L MCV 102 H MCH 34.9 H MCHC 34.2 RDW 20.0 H Plt Count 87 L Seg Neutrophils % 66.2 Lymphocytes % 16.9 Monocytes % 15.7 H Eosinophils % 0.8 Basophils % 0.4 Absolute Neutrophils 0.5 L Absolute Lymphocytes 0.1 L Absolute Monocytes 0.1 Absolute Eosinophils 0.0 Absolute Basophils 0.0 Sodium Cancelled 131.7 L Potassium Cancelled 4.0 Chloride Cancelled 106 Carbon Dioxide Cancelled 19 L Anion Gap Cancelled 7 BUN Cancelled 24 H Creatinine Cancelled 0.73 Est GFR ( Amer) Cancelled > 60 Est GFR (Non-Af Amer) Cancelled > 60 Glucose Cancelled 93 Calcium Cancelled 7.3 L Magnesium Cancelled 1.7 Albumin Stool Occult Blood Stool for White Cells 02/13/17 02/13/17 02/14/17 13:27 19:02 01:10 Troponin I 0.152 0.176 0.158 Impressions: Chest X-Ray 02/13/17 10:39 IMPRESSION: NO ACUTE RADIOGRAPHIC FINDING IN THE CHEST. Interventional Vascular Procedure 02/14/17 00:00 IMPRESSION: SUCCESSFUL PLACEMENT OF A 5 FR DUAL LUMEN 41 CM PICC IN THE left basilic VEIN. PICC Line Insertion 02/14/17 11:26 IMPRESSION: SUCCESSFUL PLACEMENT OF A 5 FR DUAL LUMEN 41 CM PICC IN THE left basilic VEIN. Assessment & Plan - Diagnosis (1) Neutropenic fever Is this a current diagnosis for this admission?: YesPlan: Patient will be placed on broad culture IV antibiotics after urine and blood cultures were obtained. Neupogen will be given. Dr Story, will be consulted. Patient will be placed in reverse isolation. Family updated on this as well. Fever has come down. He was able to be weaned off levophed last night. He is no longer hypotensive and tachycardia is improved. (2) Sepsis Qualifiers: Sepsis type: sepsis due to unspecified organism Qualified Code(s): A41.9 - Sepsis, unspecified organism Is this a current diagnosis for this admission?: NoPlan: He is no longer hypotensive, he has now low grade fever and mild tachycardia. His altered mental status is resolved mostly back to his baseline. He has one set of blood cultures positive for gram negative rods. Urine culture is pending. Urinalysis is unremarkable. Chest xray is clear (3) Hypotension Qualifiers: Hypotension type: unspecified hypotension type Qualified Code(s): I95.9 - Hypotension, unspecified Is this a current diagnosis for this admission?: YesPlan: Secondary to infection and dehydration. He required aggressive fluid hydration and levophed overnight (4) Hyponatremia Is this a current diagnosis for this admission?: YesPlan: Likely secondary to decreased oral intake over the last week according to family. Will continue to gently rehydrate with IV fluids. (5) Hypokalemia Is this a current diagnosis for this admission?: YesPlan: Will replete and monitor (6) HLD (hyperlipidemia) Qualifiers: Hyperlipidemia type: unspecified Qualified Code(s): E78.5 - Hyperlipidemia, unspecified Is this a current diagnosis for this admission?: YesPlan: Will continue statin (7) Metastasis to bone Is this a current diagnosis for this admission?: YesPlan: Prn analagesics (8) DNR (do not resuscitate) Is this a current diagnosis for this admission?: YesPlan: Patient has written DNR order. His and he are agreeable to treatment of any reversible conditions. - Time Time Spent with patient: 25-34 minutes Critical Time spent with patient: 25-34 minutes Medications reviewed and adjusted accordingly: Yes
[2017-02-14] MEDS ORDERED: FILGRASTIM INJ 300 MCG/1 ML VIAL SUBCUT ONE (17:00)
[2017-02-14 17:12] LABS: PATH REVIEW PATHOLOGIST REVIEWED
[2017-02-14] MEDS: LEVOFLOXACIN 750 MG/D5W RTU 750 MG/150 ML RTUPB IV SCH (20:00)
[2017-02-14] MEDS: SIMVASTATIN 10 MG TABLET PO SCH (21:02)
[2017-02-14] MEDS: NORMAL SALINE 10 ML SDV (SCHEDULED) IV SCH (21:03)
[2017-02-15] MEDS: VANCOMYCIN HCL 750 MG in DEXTROSE 5%-WATER 250 ML IV SCH ×2 (00:15→14:21)
[2017-02-15] MEDS: MORPHINE SULFATE 10 MG/ML INJ IV PRN ×2 (00:24→04:07)
[2017-02-15] MEDS: HYDROCORTISONE SOD SUCCINATE INJ/PF 100 MG/2 ML SDV IV SCH ×3 (02:02→17:17)
[2017-02-15] MEDS: POTASSI CL 20 MEQ/NS 1L 1,000 ML IV PRN (04:16)
[2017-02-15 05:33] LABS: ANION GAP 7 (5-19); BLOOD UREA NITROGEN 23 mg/dL (7-20); CALCIUM 7.3 mg/dL (8.4-10.2); CARBON DIOXIDE 16 mmol/L (22-30); CHLORIDE 103 mmol/L (98-107); CREATININE RESULT 0.61 mg/dL (0.52-1.25); GLUCOSE 97 mg/dL (75-110); POTASSIUM 3.8 mmol/L (3.6-5.0)
[2017-02-15] MEDS: LANSOPRAZOLE 30 MG TAB.RAP.DR PO SCH ×2 (05:51→17:16)
[2017-02-15 05:56] LABS: HEMATOCRIT 27.8 % (37.9-51.0); HEMOGLOBIN 9.5 g/dL (13.5-17.0); HGB HCT DIFFERENCE 0.7; MEAN CORPUSCULAR HEMOGLOBIN 34.5 pg (27.0-33.4); MEAN CORPUSCULAR HGB CONC 34.2 g/dL (32.0-36.0); MEAN CORPUSCULAR VOLUME 101 fl (80-97); RED BLOOD COUNT 2.75 10^6/uL (4.35-5.55)
[2017-02-15 06:16] LABS: RED CELL DISTRIBUTION WIDTH 19.9 % (11.5-14.0)
[2017-02-15 06:19] LABS: ANISOCYTOSIS 2+; BASOPHILS % (MANUAL) 0 % (0-2); EOSINOPHILS % (MANUAL) 0 % (0-6); LYMPHOCYTES % (MANUAL) 8 % (13-45); TOTAL CELLS COUNTED 50; TOXIC GRANULATION 1+
[2017-02-15 06:20] LABS: OVALOCYTES SLIGHT; POIKILOCYTOSIS 1+; SCHISTOCYTES SLIGHT
[2017-02-15 06:33] LABS: WHITE BLOOD COUNT 1.3 10^3/uL (4.0-10.5)
[2017-02-15] MEDS ORDERED: METOPROLOL TARTRATE PF/INJ 5 MG/5 ML SDV IV ONE (09:57)
--- NOTE | 2017-02-15 10:27 | EKG REPORT ---
SEVERITY:- ABNORMAL ECG - A FIB WITH RVR, VPC AND RBBB : Confirmed by: Irene Flores 15-Feb-2017 10:26:12
[2017-02-15] MEDS: CEFEPIME 2 GM/D5W RTU 2 GM/50 ML RTUPB IV SCH ×2 (10:36→22:08)
[2017-02-15] MEDS: DOCUSATE SODIUM 100 MG CAPSULE PO SCH ×2 (10:36→17:17)
[2017-02-15] MEDS: METOPROLOL TARTRATE 25 MG TABLET PO SCH ×2 (10:36→22:09)
[2017-02-15] MEDS: NORMAL SALINE 10 ML SDV (SCHEDULED) IV SCH ×2 (10:37→22:09)
--- NOTE | 2017-02-15 11:22 | PDOC PROGRESS REPORT ---
Subjective Progress Note for:: 02/15/17 Subjective:: reason for visit: f/u neutropenic fever, poss UTI, GNR bacteremia, met prostate CA, septic shock hospital course: per otehr's notes- "AARTI BARON is a 86 year old male past medical history metastatic prostate cancer, on systemic chemotherapy, essential hypertension and dyslipidemia; presents with fever, weakness and confusion since 4 AM this morning. Patient seen by Dr. Story, he has no other primary care physician. His last chemotherapy was a week ago on Tuesday. He denies any cough, chest congestion, nausea, vomiting diarrhea or dysuria. He has had prior episodes of neutropenic fever in the past. He was found to have temperature on arrival of 101 tympanic, heart rate in the 120s systolic blood pressure in the 80-90 systolic range. Blood pressure did improve with IV fluid bolus by the ER provider. He is presently awake, alert and able to answer questions. He has been started on IV broad-spectrum antibiotics after blood cultures were obtained. He was able to be wean off vasopressor overnight. His hypotension and fever has resolved. He denies any shortness of breath, cough or dyspnea. He has been able to eat and drink without nausea or vomiting. He had one episode of diarrhea last night. Stool was sent for cdiff which is reported as negative. He has had no further diarrhea. He denies any dysuria prior to admission. He admits to not eating or drinking much for the last 4 days prior to admission. He has chronic lymphedema and skin changes in the right lower leg from radiation therapy. He states this is unchanged from previously. His or son are not at the bedside at the present time. " i inherited his care Tuesday and family reports he is improving, still not eating well but denies odynophagia, sore throat, difficulty breathing or swallowing, foul taste in his mouth or coating on his tongue. no fevers documented since arrival to the floor, overall temp curve trending down. review of telemetry shows wide complex tachycardia c/w afib and hemiblock and RVR. no prior hx of same per family. last echo we have is 2013 shows EF 60-65% , grade 2/4 DD, mild MR, trace AR, mold TR, and no discussion of atria. ROS: he denies chest pain, palpitations; gets easily winded and fatigued with minimal exertion, will not eat unless his encourages him and assits. all systems reviewed, see above, remaining systems negative. Physical Exam Vital Signs: Temp Pulse Resp BP Pulse Ox 98.3 F 104 H 12 142/80 H 96 02/15/17 07:19 02/15/17 08:00 02/15/17 07:19 02/15/17 07:19 02/15/17 07:19 Intake & Output 02/14/17 02/15/17 02/16/17 06:59 06:59 06:59 Intake Total 4218 1793 Output Total 1075 924 Balance 3143 869 Weight 74.7 kg 75.8 kg General appearance: PRESENT: no acute distress - ill appearing, well-developed, well-nourished Head exam: PRESENT: atraumatic, normocephalic Eye exam: PRESENT: EOMI. ABSENT: conjunctival injection, scleral icterus Neck exam: PRESENT: full ROM. ABSENT: JVD Respiratory exam: PRESENT: crackles - R>L bases, decreased breath sounds. ABSENT: stridor, unlabored, wheezes Cardiovascular exam: PRESENT: irregular rhythm, tachycardia. ABSENT: systolic murmur Pulses: PRESENT: normal radial pulses, normal dorsalis pedis pul GI/Abdominal exam: PRESENT: normal bowel sounds, soft. ABSENT: tenderness Extremities exam: PRESENT: +2 edema - diffuse soft tissue edema from head to toe Musculoskeletal exam: ABSENT: ambulatory - too weak to raise his leg off the bed let alone walk, tenderness Neurological exam: PRESENT: alert, awake, oriented to person, oriented to place. ABSENT: oriented to time, oriented to situation Psychiatric exam: PRESENT: appropriate affect, normal mood Skin exam: PRESENT: mottled - Rt leg that family is from prior radiating treatment, warm. ABSENT: dry - moist and in places weeping clear thin fluid hands and legs and feet Results Laboratory Results: 02/15/17 04:20 02/15/17 04:20 02/14/17 02/15/17 02/15/17 14:50 04:20 04:20 WBC 0.7 L* 1.3 L* RBC 2.75 L 2.75 L Hgb 9.6 L 9.5 L Hct 28.1 L 27.8 L MCV 102 H 101 H MCH 34.9 H 34.5 H MCHC 34.2 34.2 RDW 20.0 H 19.9 H Plt Count 87 L 79 L Seg Neutrophils % 66.2 Not Reportable Lymphocytes % 16.9 Not Reportable Monocytes % 15.7 H Not Reportable Eosinophils % 0.8 Not Reportable Basophils % 0.4 Not Reportable Absolute Neutrophils 0.5 L Not Reportable Absolute Lymphocytes 0.1 L Not Reportable Absolute Monocytes 0.1 Not Reportable Absolute Eosinophils 0.0 Not Reportable Absolute Basophils 0.0 Not Reportable Sodium 126.0 L Potassium 3.8 Chloride 103 Carbon Dioxide 16 L Anion Gap 7 BUN 23 H Creatinine 0.61 Est GFR ( Amer) > 60 Est GFR (Non-Af Amer) > 60 Glucose 97 Calcium 7.3 L 02/13/17 02/13/17 02/14/17 13:27 19:02 01:10 Troponin I 0.152 0.176 0.158 EKG Comments: afib with RBBB and rvr Impressions: Chest X-Ray 02/13/17 10:39 IMPRESSION: NO ACUTE RADIOGRAPHIC FINDING IN THE CHEST. Interventional Vascular Procedure 02/14/17 00:00 IMPRESSION: SUCCESSFUL PLACEMENT OF A 5 FR DUAL LUMEN 41 CM PICC IN THE left basilic VEIN. PICC Line Insertion 02/14/17 11:26 IMPRESSION: SUCCESSFUL PLACEMENT OF A 5 FR DUAL LUMEN 41 CM PICC IN THE left basilic VEIN. Status: Image reviewed by me - agree with reads Assessment & Plan - Diagnosis (1) Gram-negative bacteremia Is this a current diagnosis for this admission?: YesPlan: new; this is likely source of his septic shock but unclear where the bacteremia originated as his urine culx is negative. reviewe of his cxr shows a possible small airspace consolidation in RLL but no real symptoms of pneumonia now or previously; possibly GI source given his recent chemo and XRT with hx of diarrhea. continue current abx and repeat culx's to confirm clearing, o/w will need TAM and remove the PICC line. (2) Neutropenia with fever Is this a current diagnosis for this admission?: YesPlan: improved but not back to baseline; one dose of neupogen given and trend is up with other treatments noted. continue to monitor CBC (3) Sepsis Qualifiers: Sepsis type: sepsis due to unspecified organism Qualified Code(s): A41.9 - Sepsis, unspecified organism Is this a current diagnosis for this admission?: YesPlan: with shock; improved but not back to baseline/resolved. continue current treatment except need to reduce his IVFs due to developing anasarca/skin weeping /volume overload/third spacing. (4) DNR (do not resuscitate) Is this a current diagnosis for this admission?: Yes (5) Hypokalemia Is this a current diagnosis for this admission?: YesPlan: resolved with treatment (6) Hyponatremia Is this a current diagnosis for this admission?: YesPlan: worse again and likely due to fluid shifts, possibly complicated by pulmonic process; if doesnt' improve, consider ct chest to better characterize. hold fluids and monitor for response (7) Metastasis to bone Is this a current diagnosis for this admission?: Yes (8) Prostate cancer Is this a current diagnosis for this admission?: Yes (9) Afib Qualifiers: Atrial fibrillation type: paroxysmal Qualified Code(s): I48.0 - Paroxysmal atrial fibrillation Is this a current diagnosis for this admission?: YesPlan: new onset and likely related to the stress from above. ck echo; start betablocker and monitor HR with goal <120 but with careful monitoring of his BPs given recent hypotension/shock. consider cardizem gtt. no anticoagulation due to low plts. no ddimer as this will undoubtedly be elevated in the setting of sepsis with underlying cancer; can't anticoagulate a PE anyway due to low plts and Hg. - Time Time Spent with patient: 35 or more minutes Medications reviewed and adjusted accordingly: Yes
[2017-02-15 13:17] LABS: MAGNESIUM 1.8 mg/dL (1.6-2.3); PHOSPHORUS 2.3 mg/dL (2.5-4.5)
--- NOTE | 2017-02-15 16:33 | XCELERA REPORT ---
[address] [address] Transthoracic Echocardiogram Report Name: AARTI BARON Age: 86 yrs Gender: Male : 1930 Patient Status: Inpatient Patient Location: [id number]\S\333\S\A Study Date: 02/15/2017 02:57 PM Height: 70 in Weight: 167 lb BSA: 1.9 m2 Procedure: A two-dimensional transthoracic echocardiogram with color flow and Doppler was performed. Study Quality: Fair. Reason For Study: new onset afib and heart failure History: new onset afib and heart failure. Ordering Physician: MARCUS SOMMERS Performed By: Machelle Howard Interpretation Summary The left ventricle is normal in size. There is normal left ventricular wall thickness. LV EF is 35% to 40% Left ventricular systolic function is moderately reduced. Doppler measurements suggest pseudonormalized left ventricular relaxation, which is associated with grade II/IV or mild to moderate diastolic dysfunction There is moderate global hypokinesis of the left ventricle. The left atrial size is normal. There is no evidence of mitral valve prolapse. There is no mitral valve stenosis. There is a mild amount of mitral regurgitation There is no aortic valve stenosis There is no LVOT obstruction. There is a mild amount of aortic regurgitation There is a mild amount of tricuspid regurgitation There is mild pulmonary hypertension by echo RVSP is 33 mm of Hg , with RA mean of 10. There are 2 PA jets which are mild. There is no pericardial effusion. MMode/2D Measurements \T\ Calculations RVDd: 3.3 cm LVIDd: 4.3 cm FS: 25.2 % Ao root diam: 3.1 cm IVSd: 0.96 cm LVIDs: 3.2 cm EDV(Teich): 85.0 ml LVPWd: 1.00 cm ESV(Teich): 42.5 ml Ao root area: 7.7 cm2 EF(Teich): 50.0 % Doppler Measurements \T\ Calculations MV E max rakan: MV dec slope: Ao V2 max: AI max rakan: 57.5 cm/sec 98.0 cm/sec 413.9 cm/sec MV A max rakan: 167.3 cm/sec2 Ao max PG: AI max P.9 cm/sec MV dec time: 3.8 mmHg 68.5 mmHg MV E/A: 0.59 0.34 sec AI dec slope: 131.5 cm/sec2 AI P1/2t: 921.9 msec LV V1 max PG: PA V2 max: PI end-d rakan: TR max rakan: 2.3 mmHg 60.5 cm/sec 103.0 cm/sec 236.3 cm/sec LV V1 max: PA max P.5 mmHg TR max P.0 cm/sec 22.3 mmHg Left Ventricle The left ventricle is normal in size. There is normal left ventricular wall thickness. LV EF is 35% to 40%. Left ventricular systolic function is moderately reduced. Doppler measurements suggest pseudonormalized left ventricular relaxation, which is associated with grade II/IV or mild to moderate diastolic dysfunction. There is moderate global hypokinesis of the left ventricle. There is no thrombus. Right Ventricle The right ventricle is grossly normal size. The right ventricle is not well visualized secondary to technical limitations. Atria The right atrium is normal. The left atrial size is normal. Mitral Valve There is mild mitral annular calcification. There is no evidence of mitral valve prolapse. There is no vegetation seen on the mitral valve. There is no mitral valve stenosis. There is a mild amount of mitral regurgitation. Aortic Valve The aortic valve is trileaflet. The aortic valve opens well. There is no aortic valvular vegetation. There is no aortic valve stenosis. There is no LVOT obstruction. There is a mild amount of aortic regurgitation. Tricuspid Valve There is no tricuspid stenosis. There is a mild amount of tricuspid regurgitation. There is mild pulmonary hypertension by echo. RVSP is 33 mm of Hg , with RA mean of 10. Pulmonic Valve There is no pulmonic valvular stenosis. There is a mild amount of pulmonic regurgitation. There are 2 PA jets which are mild. Great Vessels The aortic root is normal size. Effusions There is no pericardial effusion. : MARCUS SOMMERS > Stephanie Maldonado
[2017-02-15] MEDS: LEVOFLOXACIN 750 MG/D5W RTU 750 MG/150 ML RTUPB IV SCH (17:17)
[2017-02-15] MEDS: SIMVASTATIN 10 MG TABLET PO SCH (22:10)
[2017-02-16] MEDS: VANCOMYCIN HCL 750 MG in DEXTROSE 5%-WATER 250 ML IV SCH (00:45)
[2017-02-16] MEDS: HYDROCORTISONE SOD SUCCINATE INJ/PF 100 MG/2 ML SDV IV SCH ×2 (02:50→10:00)
[2017-02-16] MEDS: LANSOPRAZOLE 30 MG TAB.RAP.DR PO SCH ×2 (06:07→17:30)
[2017-02-16 06:33] LABS: HEMATOCRIT 25.7 % (37.9-51.0); HEMOGLOBIN 8.9 g/dL (13.5-17.0); MEAN CORPUSCULAR HEMOGLOBIN 34.9 pg (27.0-33.4); MEAN CORPUSCULAR HGB CONC 34.4 g/dL (32.0-36.0); MEAN CORPUSCULAR VOLUME 101 fl (80-97); RED BLOOD COUNT 2.54 10^6/uL (4.35-5.55); RED CELL DISTRIBUTION WIDTH 19.5 % (11.5-14.0)
[2017-02-16 06:50] LABS: ANION GAP 7 (5-19); BLOOD UREA NITROGEN 19 mg/dL (7-20); CALCIUM 7.5 mg/dL (8.4-10.2); CARBON DIOXIDE 17 mmol/L (22-30); CHLORIDE 103 mmol/L (98-107); CREATININE RESULT 0.59 mg/dL (0.52-1.25); GLUCOSE 95 mg/dL (75-110); MAGNESIUM 1.9 mg/dL (1.6-2.3); POTASSIUM 3.8 mmol/L (3.6-5.0); SODIUM 127.4 mmol/L (137-145)
[2017-02-16 07:05] LABS: BAND NEUTROPHILS % (MANUAL) 5 % (3-5); BASOPHILS % (MANUAL) 0 % (0-2); EOSINOPHILS % (MANUAL) 0 % (0-6); LYMPHOCYTES % (MANUAL) 11 % (13-45); TOTAL CELLS COUNTED 100
[2017-02-16 07:08] LABS: ANISOCYTOSIS 2+; BURR CELLS 1+; OVALOCYTES SLIGHT; POIKILOCYTOSIS SLIGHT; SCHISTOCYTES SLIGHT; TEAR DROP CELLS SLIGHT; TOXIC GRANULATION SLIGHT
[2017-02-16 07:09] LABS: WHITE BLOOD COUNT 3.5 10^3/uL (4.0-10.5)
[2017-02-16] MEDS: CEFEPIME 2 GM/D5W RTU 2 GM/50 ML RTUPB IV SCH (09:56)
[2017-02-16] MEDS: DOCUSATE SODIUM 100 MG CAPSULE PO SCH ×2 (10:00→17:30)
[2017-02-16] MEDS: METOPROLOL TARTRATE 25 MG TABLET PO SCH ×2 (10:02→23:30)
--- NOTE | 2017-02-16 11:05 | PDOC PROGRESS REPORT ---
Subjective Progress Note for:: 02/16/17 Subjective:: reason for visit: f/u neutropenic fever, poss UTI, GNR bacteremia, met prostate CA, septic shock hospital course: per otehr's notes- "AARTI BARON is a 86 year old male past medical history metastatic prostate cancer, on systemic chemotherapy, essential hypertension and dyslipidemia; presents with fever, weakness and confusion since 4 AM this morning. Patient seen by Dr. Story, he has no other primary care physician. His last chemotherapy was a week ago on Tuesday. He denies any cough, chest congestion, nausea, vomiting diarrhea or dysuria. He has had prior episodes of neutropenic fever in the past. He was found to have temperature on arrival of 101 tympanic, heart rate in the 120s systolic blood pressure in the 80-90 systolic range. Blood pressure did improve with IV fluid bolus by the ER provider. He is presently awake, alert and able to answer questions. He has been started on IV broad-spectrum antibiotics after blood cultures were obtained. He was able to be wean off vasopressor overnight. His hypotension and fever has resolved. He denies any shortness of breath, cough or dyspnea. He has been able to eat and drink without nausea or vomiting. He had one episode of diarrhea last night. Stool was sent for cdiff which is reported as negative. He has had no further diarrhea. He denies any dysuria prior to admission. He admits to not eating or drinking much for the last 4 days prior to admission. He has chronic lymphedema and skin changes in the right lower leg from radiation therapy. He states this is unchanged from previously. His or son are not at the bedside at the present time. " i inherited his care Tuesday. Family reports he is improving, denies difficulty breathing, rash and no fevers documented since arrival to the floor, overall temp curve trending down. review of telemetry shows wide complex tachycardia c/w afib and hemiblock and RVR, no prior hx of same per family. last echo we have is 2013 shows EF 60-65% , grade 2/4 DD, mild MR, trace AR, mold TR, and no discussion of atria. repeat echo this admit: echo report on the chart, per dr krause EF 35-40%, mod global hypokinesia, mild MR, AR, TR and pulm HTN. He was given lopressor IV and started on oral regimen and slips in/out of afib intermittently ever since, always rate controlled. ROS: he denies chest pain, palpitations, c/o dry mouth and sore throat when he swallows; very easily winded and fatigued with minimal exertion, will not eat unless his encourages him and assits. all systems reviewed, see above, remaining systems negative. Physical Exam Vital Signs: Temp Pulse Resp BP Pulse Ox 98.3 F 90 18 127/65 H 97 02/16/17 07:28 02/16/17 07:28 02/16/17 07:28 02/16/17 07:28 02/16/17 07:28 Intake & Output 02/15/17 02/16/17 02/17/17 06:59 06:59 06:59 Intake Total 1793 1055 Output Total 924 1400 Balance 869 -345 Weight 75.8 kg 77.9 kg General appearance: PRESENT: no acute distress - ill appearing, well-developed, well-nourished Head exam: PRESENT: atraumatic, normocephalic, very dry oral mucosa with raised papillae, thin clear coating on all buccal surfaces and tongue Eye exam: PRESENT: EOMI. ABSENT: conjunctival injection, scleral icterus Neck exam: PRESENT: full ROM. ABSENT: JVD Respiratory exam: PRESENT: crackles - R>L bases, decreased breath sounds. ABSENT: stridor, unlabored, wheezes Cardiovascular exam: PRESENT: regular rhythm, no tachycardia. ABSENT: systolic murmur Pulses: PRESENT: normal radial pulses, normal dorsalis pedis pul GI/Abdominal exam: PRESENT: normal bowel sounds, soft. ABSENT: tenderness Extremities exam: PRESENT: +1 to +2 edema - diffuse soft tissue edema from head to toe Musculoskeletal exam: ABSENT: ambulatory - too weak to raise his leg off the bed let alone walk, tenderness Neurological exam: PRESENT: alert, awake, oriented to person, oriented to place. ABSENT: oriented to time, oriented to situation Psychiatric exam: PRESENT: appropriate affect, normal mood Skin exam: PRESENT: mottled - Rt leg that family is from prior radiating treatment, warm and moist but no longer weeping clear thin fluid hands and legs and feet Results Laboratory Results: 02/16/17 06:18 02/16/17 06:18 02/15/17 02/16/17 02/16/17 12:33 06:18 06:18 WBC 3.5 L D RBC 2.54 L Hgb 8.9 L Hct 25.7 L MCV 101 H MCH 34.9 H MCHC 34.4 RDW 19.5 H Plt Count 69 L Seg Neutrophils % Not Reportable Lymphocytes % Not Reportable Monocytes % Not Reportable Eosinophils % Not Reportable Basophils % Not Reportable Absolute Neutrophils Not Reportable Absolute Lymphocytes Not Reportable Absolute Monocytes Not Reportable Absolute Eosinophils Not Reportable Absolute Basophils Not Reportable Sodium 127.4 L Potassium 3.8 Chloride 103 Carbon Dioxide 17 L Anion Gap 7 BUN 19 Creatinine 0.59 Est GFR ( Amer) > 60 Est GFR (Non-Af Amer) > 60 Glucose 95 Calcium 7.5 L Phosphorus 2.3 L Magnesium 1.8 1.9 02/13/17 02/13/17 02/14/17 13:27 19:02 01:10 Troponin I 0.152 0.176 0.158 Assessment & Plan - Diagnosis (1) Gram-negative bacteremia Is this a current diagnosis for this admission?: YesPlan: stable, pansens pseudomonas; this is likely source of his septic shock but unclear where the bacteremia originated as his urine culx is negative. review of his cxr shows a possible small airspace consolidation in RLL but no real symptoms of pneumonia now or previously; possibly GI source given his recent chemo and XRT with hx of diarrhea. continue current abx and repeat culx's to confirm clearing, o/w will need TAM and remove the PICC line. (2) Neutropenia with fever Is this a current diagnosis for this admission?: YesPlan: resolved, ANC >1K; one dose of neupogen given and trend is up with other treatments noted. continue to monitor CBC (3) Sepsis Qualifiers: Sepsis type: sepsis due to unspecified organism Qualified Code(s): A41.9 - Sepsis, unspecified organism Is this a current diagnosis for this admission?: YesPlan: with shock; resolved. (4) Afib Qualifiers: Atrial fibrillation type: paroxysmal Qualified Code(s): I48.0 - Paroxysmal atrial fibrillation Is this a current diagnosis for this admission?: YesPlan: new onset and likely related to the stress from above. continue betablocker and monitor HR with goal <120 but with careful monitoring of his BPs given recent hypotension/shock. no anticoagulation due to low plts. no ddimer as this will undoubtedly be elevated in the setting of sepsis with underlying cancer; can't anticoagulate a PE anyway due to low plts and Hg. (5) DNR (do not resuscitate) Is this a current diagnosis for this admission?: Yes (6) Hypokalemia Is this a current diagnosis for this admission?: Yes (7) Hyponatremia Is this a current diagnosis for this admission?: Yes (8) Metastasis to bone Is this a current diagnosis for this admission?: Yes (9) Prostate cancer Is this a current diagnosis for this admission?: Yes - Time Time Spent with patient: 25-34 minutes Anticipated discharge: SNF Within: within 72 hours - it is unlikely he will be well enough or strong enough to go from here to home with first a rehab stint, family agreeable.
[2017-02-16] MEDS: NORMAL SALINE 10 ML SDV (SCHEDULED) IV SCH ×2 (11:57→21:08)
[2017-02-16 12:24] LABS: HEMATOCRIT 26.2 % (37.9-51.0); HEMOGLOBIN 9.1 g/dL (13.5-17.0); HGB HCT DIFFERENCE 1.1; MEAN CORPUSCULAR HGB CONC 34.7 g/dL (32.0-36.0); MEAN CORPUSCULAR VOLUME 101 fl (80-97); RED CELL DISTRIBUTION WIDTH 19.9 % (11.5-14.0); WHITE BLOOD COUNT 4.6 10^3/uL (4.0-10.5)
[2017-02-16 12:37] LABS: ANION GAP 6 (5-19); BLOOD UREA NITROGEN 17 mg/dL (7-20); CARBON DIOXIDE 16 mmol/L (22-30); CHLORIDE 108 mmol/L (98-107); CREATININE RESULT 0.51 mg/dL (0.52-1.25); GLUCOSE 88 mg/dL (75-110); POTASSIUM 3.1 mmol/L (3.6-5.0); SODIUM 129.9 mmol/L (137-145)
[2017-02-16 12:47] LABS: CALCIUM 6.7 mg/dL (8.4-10.2)
[2017-02-16 12:50] LABS: ANISOCYTOSIS 2+; BAND NEUTROPHILS % (MANUAL) 9 % (3-5); BASOPHILS % (MANUAL) 0 % (0-2); EOSINOPHILS % (MANUAL) 0 % (0-6); LYMPHOCYTES % (MANUAL) 3 % (13-45); POIKILOCYTOSIS 2+; TOTAL CELLS COUNTED 100; TOXIC GRANULATION SLIGHT; TOXIC VACUOLATION PRESENT
[2017-02-16 12:51] LABS: BURR CELLS 1+; OVALOCYTES 2+; SCHISTOCYTES 1+
[2017-02-16] MEDS: NYSTATIN/DEXAMETH/DIPHEN SUSP 120 ML PO SCH ×3 (14:00→21:07)
[2017-02-16] MEDS: LACTOBACILLUS ACIDOPHILUS 250 MG TAB PO SCH (17:30)
[2017-02-16] MEDS: LEVOFLOXACIN 750 MG/D5W RTU 750 MG/150 ML RTUPB IV SCH (17:31)
[2017-02-16] MEDS: PREDNISONE 5 MG TABLET PO SCH (17:42)
[2017-02-16] MEDS: SIMVASTATIN 10 MG TABLET PO SCH (21:06)
[2017-02-17 04:35] LABS: HEMATOCRIT 23.5 % (37.9-51.0); HGB HCT DIFFERENCE 0.5; MEAN CORPUSCULAR HEMOGLOBIN 34.2 pg (27.0-33.4); MEAN CORPUSCULAR HGB CONC 34.1 g/dL (32.0-36.0); MEAN CORPUSCULAR VOLUME 101 fl (80-97); RED BLOOD COUNT 2.34 10^6/uL (4.35-5.55); RED CELL DISTRIBUTION WIDTH 19.8 % (11.5-14.0)
[2017-02-17 04:56] LABS: ANION GAP 6 (5-19); BLOOD UREA NITROGEN 19 mg/dL (7-20); CALCIUM 7.6 mg/dL (8.4-10.2); CARBON DIOXIDE 19 mmol/L (22-30); CHLORIDE 105 mmol/L (98-107); GLUCOSE 84 mg/dL (75-110); POTASSIUM 3.2 mmol/L (3.6-5.0)
[2017-02-17 05:09] LABS: BAND NEUTROPHILS % (MANUAL) 2 % (3-5); BASOPHILS % (MANUAL) 0 % (0-2); EOSINOPHILS % (MANUAL) 0 % (0-6); LYMPHOCYTES % (MANUAL) 11 % (13-45); TOTAL CELLS COUNTED 100
[2017-02-17 05:12] LABS: ANISOCYTOSIS 2+; BURR CELLS 1+; OVALOCYTES 1+; POIKILOCYTOSIS 1+; POLYCHROMASIA 1+; TOXIC GRANULATION 1+; TOXIC VACUOLATION PRESENT
[2017-02-17] MEDS: LANSOPRAZOLE 30 MG TAB.RAP.DR PO SCH ×2 (05:57→16:29)
[2017-02-17] MEDS: MORPHINE SULFATE 10 MG/ML INJ IV PRN (08:40)
[2017-02-17] MEDS: METOPROLOL TARTRATE 25 MG TABLET PO SCH ×2 (10:10→22:16)
[2017-02-17] MEDS: LACTOBACILLUS ACIDOPHILUS 250 MG TAB PO SCH ×2 (10:11→17:08)
[2017-02-17] MEDS: DOCUSATE SODIUM 100 MG CAPSULE PO SCH ×2 (10:11→17:08)
[2017-02-17] MEDS: PREDNISONE 5 MG TABLET PO SCH ×2 (10:11→17:09)
[2017-02-17] MEDS: NYSTATIN/DEXAMETH/DIPHEN SUSP 120 ML PO SCH ×4 (10:11→22:15)
[2017-02-17] MEDS: NORMAL SALINE 10 ML SDV (SCHEDULED) IV SCH ×2 (10:12→22:16)
[2017-02-17] MEDS ORDERED: NORMAL SALINE 250 ML IV PRN ×2 (10:14)
[2017-02-17] MEDS ORDERED: POTASSIUM CHLORIDE 20 MEQ/15 ML UDCUP PO ONE (11:00)
--- NOTE | 2017-02-17 16:13 | PDOC PROGRESS REPORT ---
Subjective Progress Note for:: 02/17/17 Subjective:: reason for visit: f/u neutropenic fever, poss UTI, GNR bacteremia, met prostate CA, septic shock hospital course: per otehr's notes- "AARTI BARON is a 86 year old male past medical history metastatic prostate cancer, on systemic chemotherapy, essential hypertension and dyslipidemia; presents with fever, weakness and confusion since 4 AM this morning. Patient seen by Dr. Story, he has no other primary care physician. His last chemotherapy was a week ago on Tuesday. He denies any cough, chest congestion, nausea, vomiting diarrhea or dysuria. He has had prior episodes of neutropenic fever in the past. He was found to have temperature on arrival of 101 tympanic, heart rate in the 120s systolic blood pressure in the 80-90 systolic range. Blood pressure did improve with IV fluid bolus by the ER provider. He is presently awake, alert and able to answer questions. He has been started on IV broad-spectrum antibiotics after blood cultures were obtained. He was able to be wean off vasopressor overnight. His hypotension and fever has resolved. He denies any shortness of breath, cough or dyspnea. He has been able to eat and drink without nausea or vomiting. He had one episode of diarrhea last night. Stool was sent for cdiff which is reported as negative. He has had no further diarrhea. He denies any dysuria prior to admission. He admits to not eating or drinking much for the last 4 days prior to admission. He has chronic lymphedema and skin changes in the right lower leg from radiation therapy. He states this is unchanged from previously. His or son are not at the bedside at the present time. " i inherited his care Tuesday. Family reports he is improving, denies difficulty breathing, rash and no fevers documented since arrival to the floor, overall temp curve trending down. review of telemetry shows wide complex tachycardia c/w afib and hemiblock and RVR, no prior hx of same per family. last echo we have is 2013 shows EF 60-65% , grade 2/4 DD, mild MR, trace AR, mold TR, and no discussion of atria. repeat echo this admit: echo report on the chart, per dr krause EF 35-40%, mod global hypokinesia, mild MR, AR, TR and pulm HTN. He was given lopressor IV and started on oral regimen and slips in/out of afib intermittently ever since, always rate controlled. ROS: much more alert and interactive with his family today, he denies chest pain, palpitations, c/o dry mouth and sore throat when he swallows; very easily winded and fatigued with minimal exertion, will not eat unless his encourages him and assits. all systems reviewed, see above, remaining systems negative. Physical Exam Vital Signs: Temp Pulse Resp BP Pulse Ox 97.6 F 77 16 112/63 98 02/17/17 15:50 02/17/17 15:50 02/17/17 15:50 02/17/17 15:50 02/17/17 15:50 Intake & Output 02/16/17 02/17/17 02/18/17 06:59 06:59 06:59 Intake Total 1055 350 350 Output Total 1400 1200 200 Balance -345 -850 150 Weight 77.9 kg 76.1 kg General appearance: PRESENT: no acute distress - well-developed, well-nourished Head exam: PRESENT: atraumatic, normocephalic, moist oral mucosa Eye exam: PRESENT: EOMI. ABSENT: conjunctival injection, scleral icterus Neck exam: PRESENT: full ROM. ABSENT: JVD Respiratory exam: PRESENT: crackles - R>L bases, decreased breath sounds.unlabored, ABSENT: stridor, wheezes Cardiovascular exam: PRESENT: regular rhythm, no tachycardia. ABSENT: systolic murmur Pulses: PRESENT: normal radial pulses, normal dorsalis pedis pul GI/Abdominal exam: PRESENT: normal bowel sounds, soft. ABSENT: tenderness Extremities exam: PRESENT: +1 edema - diffuse soft tissue edema from head to toe Musculoskeletal exam: ABSENT: ambulatory - able to raise his leg off the bed but max assist with PT,no muscle tenderness Neurological exam: PRESENT: alert, awake, oriented to person, oriented to place. Psychiatric exam: PRESENT: appropriate affect, normal mood Skin exam: PRESENT: mottled - Rt leg that family is from prior radiating treatment, warm and moist but no longer weeping clear thin fluid hands and legs and feet Results Laboratory Results: 02/17/17 04:01 02/17/17 04:01 02/17/17 02/17/17 02/17/17 04:01 04:01 10:55 WBC 8.0 RBC 2.34 L Hgb 8.0 L Hct 23.5 L MCV 101 H MCH 34.2 H MCHC 34.1 RDW 19.8 H Plt Count 55 L Seg Neutrophils % Not Reportable Lymphocytes % Not Reportable Monocytes % Not Reportable Eosinophils % Not Reportable Basophils % Not Reportable Absolute Neutrophils Not Reportable Absolute Lymphocytes Not Reportable Absolute Monocytes Not Reportable Absolute Eosinophils Not Reportable Absolute Basophils Not Reportable Sodium 130.0 L Potassium 3.2 L Chloride 105 Carbon Dioxide 19 L Anion Gap 6 BUN 19 Creatinine 0.60 Est GFR ( Amer) > 60 Est GFR (Non-Af Amer) > 60 Glucose 84 Calcium 7.6 L Blood Type B POSITIVE Antibody Screen NEGATIVE 02/13/17 21:09 Stool - Stool - Final 02/13/17 21:09 Stool - Stool Stool Culture - Final 02/13/17 02/13/17 02/14/17 13:27 19:02 01:10 Troponin I 0.152 0.176 0.158 Impressions: Chest X-Ray 02/13/17 10:39 IMPRESSION: NO ACUTE RADIOGRAPHIC FINDING IN THE CHEST. Interventional Vascular Procedure 02/14/17 00:00 IMPRESSION: SUCCESSFUL PLACEMENT OF A 5 FR DUAL LUMEN 41 CM PICC IN THE left basilic VEIN. PICC Line Insertion 02/14/17 11:26 IMPRESSION: SUCCESSFUL PLACEMENT OF A 5 FR DUAL LUMEN 41 CM PICC IN THE left basilic VEIN. Assessment & Plan - Diagnosis (1) Gram-negative bacteremia Is this a current diagnosis for this admission?: Yes (2) Neutropenia with fever Is this a current diagnosis for this admission?: Yes (3) Sepsis Qualifiers: Sepsis type: sepsis due to unspecified organism Qualified Code(s): A41.9 - Sepsis, unspecified organism Is this a current diagnosis for this admission?: Yes (4) Afib Qualifiers: Atrial fibrillation type: paroxysmal Qualified Code(s): I48.0 - Paroxysmal atrial fibrillation Is this a current diagnosis for this admission?: Yes (5) DNR (do not resuscitate) Is this a current diagnosis for this admission?: Yes (6) Hypokalemia Is this a current diagnosis for this admission?: Yes (7) Hyponatremia Is this a current diagnosis for this admission?: Yes (8) Metastasis to bone Is this a current diagnosis for this admission?: Yes (9) Prostate cancer Is this a current diagnosis for this admission?: Yes - Time Time Spent with patient: 15-24 minutes - Plan Summary Plan Summary: continue abx for the pseudomonas bacteremia, follow up cultures show no growth transfuse 1U PRBCs and monitor for response needs rehab placment, perhaps as early as tomorrow or Sat if bed available
[2017-02-17] MEDS: LEVOFLOXACIN 750 MG/D5W RTU 750 MG/150 ML RTUPB IV SCH (17:10)
[2017-02-17] MEDS: POTASSIUM CHLORIDE 20 MEQ/15 ML UDCUP PO SCH (22:14)
[2017-02-17] MEDS: SIMVASTATIN 10 MG TABLET PO SCH (22:14)
[2017-02-18] MEDS: LANSOPRAZOLE 30 MG TAB.RAP.DR PO SCH ×2 (05:11→17:04)
[2017-02-18 07:20] LABS: HEMATOCRIT 28.7 % (37.9-51.0); HEMOGLOBIN 9.6 g/dL (13.5-17.0); HGB HCT DIFFERENCE 0.1; MEAN CORPUSCULAR HEMOGLOBIN 32.5 pg (27.0-33.4); MEAN CORPUSCULAR HGB CONC 33.5 g/dL (32.0-36.0); RED BLOOD COUNT 2.95 10^6/uL (4.35-5.55); RED CELL DISTRIBUTION WIDTH 22.3 % (11.5-14.0); WHITE BLOOD COUNT 12.5 10^3/uL (4.0-10.5)
[2017-02-18 07:40] LABS: ANION GAP 6 (5-19); BLOOD UREA NITROGEN 16 mg/dL (7-20); CALCIUM 7.5 mg/dL (8.4-10.2); CARBON DIOXIDE 21 mmol/L (22-30); CHLORIDE 105 mmol/L (98-107); CREATININE RESULT 0.56 mg/dL (0.52-1.25); GLUCOSE 78 mg/dL (75-110); POTASSIUM 3.3 mmol/L (3.6-5.0); SODIUM 131.7 mmol/L (137-145)
[2017-02-18 07:56] LABS: BAND NEUTROPHILS % (MANUAL) 1 % (3-5); BASOPHILS % (MANUAL) 0 % (0-2); EOSINOPHILS % (MANUAL) 0 % (0-6); LYMPHOCYTES % (MANUAL) 1 % (13-45); TOTAL CELLS COUNTED 100; TOXIC GRANULATION 2+
[2017-02-18 07:57] LABS: ANISOCYTOSIS 2+; HYPOCHROMASIA SLIGHT; OVALOCYTES 1+; POIKILOCYTOSIS 1+; POLYCHROMASIA 1+
[2017-02-18 08:24] LABS: MEAN CORPUSCULAR VOLUME 97 fl (80-97)
[2017-02-18] MEDS: POTASSIUM CHLORIDE 20 MEQ/15 ML UDCUP PO SCH ×2 (09:07→21:49)
[2017-02-18] MEDS: NYSTATIN/DEXAMETH/DIPHEN SUSP 120 ML PO SCH ×4 (09:08→21:48)
[2017-02-18] MEDS: DOCUSATE SODIUM 100 MG CAPSULE PO SCH ×2 (09:10→17:04)
[2017-02-18] MEDS: LACTOBACILLUS ACIDOPHILUS 250 MG TAB PO SCH ×2 (09:11→17:04)
[2017-02-18] MEDS: PREDNISONE 5 MG TABLET PO SCH ×2 (09:11→17:04)
[2017-02-18] MEDS: NORMAL SALINE 10 ML SDV (SCHEDULED) IV SCH ×2 (09:11→21:49)
[2017-02-18] MEDS: METOPROLOL TARTRATE 25 MG TABLET PO SCH ×2 (10:34→22:02)
--- NOTE | 2017-02-18 15:27 | PDOC PROGRESS REPORT ---
Subjective Progress Note for:: 02/18/17 Subjective:: reason for visit: f/u neutropenic fever, poss UTI, GNR bacteremia, met prostate CA, septic shock hospital course: per otehr's notes- "AARTI BARON is a 86 year old male past medical history metastatic prostate cancer, on systemic chemotherapy, essential hypertension and dyslipidemia; presents with fever, weakness and confusion since 4 AM this morning. Patient seen by Dr. Story, he has no other primary care physician. His last chemotherapy was a week ago on Tuesday. He denies any cough, chest congestion, nausea, vomiting diarrhea or dysuria. He has had prior episodes of neutropenic fever in the past. He was found to have temperature on arrival of 101 tympanic, heart rate in the 120s systolic blood pressure in the 80-90 systolic range. Blood pressure did improve with IV fluid bolus by the ER provider. He is presently awake, alert and able to answer questions. He has been started on IV broad-spectrum antibiotics after blood cultures were obtained. He was able to be wean off vasopressor overnight. His hypotension and fever has resolved. He denies any shortness of breath, cough or dyspnea. He has been able to eat and drink without nausea or vomiting. He had one episode of diarrhea last night. Stool was sent for cdiff which is reported as negative. He has had no further diarrhea. He denies any dysuria prior to admission. He admits to not eating or drinking much for the last 4 days prior to admission. He has chronic lymphedema and skin changes in the right lower leg from radiation therapy. He states this is unchanged from previously. His or son are not at the bedside at the present time. " i inherited his care Tuesday. Family reports he is improving, denies difficulty breathing, rash and no fevers documented since arrival to the floor, overall temp curve trending down. review of telemetry shows wide complex tachycardia c/w afib and hemiblock and RVR, no prior hx of same per family. last echo we have is 2013 shows EF 60-65% , grade 2/4 DD, mild MR, trace AR, mold TR, and no discussion of atria. repeat echo this admit: echo report on the chart, per dr krause EF 35-40%, mod global hypokinesia, mild MR, AR, TR and pulm HTN. He was given lopressor IV and started on oral regimen and slips in/out of afib intermittently ever since, always rate controlled. he tolerated transfusion of 1U PRBCs without incident and actually feels a bit better this morning as a result. ROS: much more alert and interactive with his family today, he denies chest pain, palpitations, and states his dry mouth and sore throat improved; very easily winded and fatigued with minimal exertion, will not eat unless his encourages him and assits. all systems reviewed, see above, remaining systems negative. Physical Exam Vital Signs: Temp Pulse Resp BP Pulse Ox 97.9 F 81 18 126/61 H 98 02/18/17 11:30 02/18/17 14:00 02/18/17 11:30 02/18/17 11:30 02/18/17 11:30 Intake & Output 02/17/17 02/18/17 02/19/17 06:59 06:59 06:59 Intake Total 350 1580 414 Output Total 1200 1700 400 Balance -850 -120 14 Weight 76.1 kg 76 kg Results Laboratory Results: 02/18/17 05:20 02/18/17 05:20 02/17/17 02/18/17 02/18/17 10:55 05:20 05:20 WBC 12.5 H RBC 2.95 L Hgb 9.6 L Hct 28.7 L MCV 97 D MCH 32.5 MCHC 33.5 RDW 22.3 H Plt Count 60 L Seg Neutrophils % Not Reportable Lymphocytes % Not Reportable Monocytes % Not Reportable Eosinophils % Not Reportable Basophils % Not Reportable Absolute Neutrophils Not Reportable Absolute Lymphocytes Not Reportable Absolute Monocytes Not Reportable Absolute Eosinophils Not Reportable Absolute Basophils Not Reportable Sodium 131.7 L Potassium 3.3 L Chloride 105 Carbon Dioxide 21 L Anion Gap 6 BUN 16 Creatinine 0.56 Est GFR ( Amer) > 60 Est GFR (Non-Af Amer) > 60 Glucose 78 Calcium 7.5 L Blood Type B POSITIVE Antibody Screen NEGATIVE 02/13/17 12:00 Blood Blood Culture - Final NO GROWTH IN 5 DAYS 02/13/17 02/13/17 02/14/17 13:27 19:02 01:10 Troponin I 0.152 0.176 0.158 Assessment & Plan - Diagnosis (1) Gram-negative bacteremia Is this a current diagnosis for this admission?: YesPlan: stable, pansens pseudomonas; this is likely source of his septic shock but unclear where the bacteremia originated as his urine culx is negative. review of his cxr shows a possible small airspace consolidation in RLL but no real symptoms of pneumonia now or previously; possibly GI source given his recent chemo and XRT with hx of diarrhea. continue current abx for 2wks from neg cultures. (2) Neutropenia with fever Is this a current diagnosis for this admission?: Yes (3) Sepsis Qualifiers: Sepsis type: sepsis due to unspecified organism Qualified Code(s): A41.9 - Sepsis, unspecified organism Is this a current diagnosis for this admission?: Yes (4) Afib Qualifiers: Atrial fibrillation type: paroxysmal Qualified Code(s): I48.0 - Paroxysmal atrial fibrillation Is this a current diagnosis for this admission?: Yes (5) DNR (do not resuscitate) Is this a current diagnosis for this admission?: Yes (6) Hypokalemia Is this a current diagnosis for this admission?: Yes (7) Hyponatremia Is this a current diagnosis for this admission?: Yes (8) Metastasis to bone Is this a current diagnosis for this admission?: Yes (9) Prostate cancer Is this a current diagnosis for this admission?: Yes (10) Anemia Qualifiers: Anemia type: unspecified type Qualified Code(s): D64.9 - Anemia, unspecified Is this a current diagnosis for this admission?: YesPlan: likely 2/2 recent chemo complicated by adenoCA of the prostate and poor oral intake. improved with transfusion. - Time Time Spent with patient: 15-24 minutes Anticipated discharge: SNF Within: within 24 hours - stable for placment at this time; awaiting primary care sales representative
[2017-02-18] MEDS: LEVOFLOXACIN 750 MG/D5W RTU 750 MG/150 ML RTUPB IV SCH (17:03)
[2017-02-18] MEDS: NORMAL SALINE 10 ML SDV (AFTER EACH USE) IV PRN (18:44)
[2017-02-18] MEDS: SIMVASTATIN 10 MG TABLET PO SCH (21:45)
[2017-02-19] MEDS: LANSOPRAZOLE 30 MG TAB.RAP.DR PO SCH ×2 (07:38→17:48)
--- NOTE | 2017-02-19 10:38 | PDOC PROGRESS REPORT ---
Subjective Progress Note for:: 02/19/17 Subjective:: reason for visit: f/u neutropenic fever, poss UTI, GNR bacteremia, met prostate CA, septic shock hospital course: per otehr's notes- "AARTI BARON is a 86 year old male past medical history metastatic prostate cancer, on systemic chemotherapy, essential hypertension and dyslipidemia; presents with fever, weakness and confusion since 4 AM this morning. Patient seen by Dr. Story, he has no other primary care physician. His last chemotherapy was a week ago on Tuesday. He denies any cough, chest congestion, nausea, vomiting diarrhea or dysuria. He has had prior episodes of neutropenic fever in the past. He was found to have temperature on arrival of 101 tympanic, heart rate in the 120s systolic blood pressure in the 80-90 systolic range. Blood pressure did improve with IV fluid bolus by the ER provider. He is presently awake, alert and able to answer questions. He has been started on IV broad-spectrum antibiotics after blood cultures were obtained. He was able to be wean off vasopressor overnight. His hypotension and fever has resolved. He denies any shortness of breath, cough or dyspnea. He has been able to eat and drink without nausea or vomiting. He had one episode of diarrhea last night. Stool was sent for cdiff which is reported as negative. He has had no further diarrhea. He denies any dysuria prior to admission. He admits to not eating or drinking much for the last 4 days prior to admission. He has chronic lymphedema and skin changes in the right lower leg from radiation therapy. He states this is unchanged from previously. His or son are not at the bedside at the present time. " i inherited his care Tuesday. Family reports he is improving, denies difficulty breathing, rash and no fevers documented since arrival to the floor, overall temp curve trending down. review of telemetry shows wide complex tachycardia c/w afib and hemiblock and RVR, no prior hx of same per family. last echo we have is 2013 shows EF 60-65% , grade 2/4 DD, mild MR, trace AR, mold TR, and no discussion of atria. repeat echo this admit: echo report on the chart, per dr krause EF 35-40%, mod global hypokinesia, mild MR, AR, TR and pulm HTN. He was given lopressor IV and started on oral regimen and slips in/out of afib intermittently ever since, always rate controlled. he tolerated transfusion of 1U PRBCs without incident. ROS: much more alert and interactive with his family today, he denies chest pain, palpitations, and states his dry mouth and sore throat improved; very easily winded and fatigued with minimal exertion, still requires assistance to eat and his encourages him and assists. all systems reviewed, see above, remaining systems negative. Physical Exam Vital Signs: Temp Pulse Resp BP Pulse Ox 98.1 F 74 18 129/61 H 98 02/19/17 07:27 02/19/17 07:27 02/19/17 07:27 02/19/17 07:27 02/19/17 07:27 Intake & Output 02/18/17 02/19/17 02/20/17 06:59 06:59 06:59 Intake Total 1580 986 Output Total 1700 2000 Balance -120 -1014 Weight 76 kg 75.2 kg General appearance: PRESENT: no acute distress - well-developed, well-nourished Head exam: PRESENT: atraumatic, normocephalic, moist oral mucosa Eye exam: PRESENT: EOMI. ABSENT: conjunctival injection, scleral icterus Neck exam: PRESENT: full ROM. ABSENT: JVD Respiratory exam: PRESENT: crackles - R>L bases, decreased breath sounds.unlabored, ABSENT: stridor, wheezes Cardiovascular exam: PRESENT: regular rhythm, no tachycardia. ABSENT: systolic murmur Pulses: PRESENT: normal radial pulses, normal dorsalis pedis pul GI/Abdominal exam: PRESENT: normal bowel sounds, soft. ABSENT: tenderness Extremities exam: PRESENT: +1 edema - diffuse soft tissue edema from head to toe Musculoskeletal exam: ABSENT: ambulatory - able to raise his leg off the bed but max assist with PT,no muscle tenderness Neurological exam: PRESENT: alert, awake, oriented to person, oriented to place. Psychiatric exam: PRESENT: appropriate affect, normal mood Skin exam: PRESENT: mottled - Rt leg that family is from prior radiating treatment, warm and moist but no longer weeping clear thin fluid hands and legs and feet Results Laboratory Results: 02/18/17 05:20 02/18/17 05:20 02/13/17 12:00 Blood Blood Culture - Final NO GROWTH IN 5 DAYS 02/13/17 02/13/17 02/14/17 13:27 19:02 01:10 Troponin I 0.152 0.176 0.158 Assessment & Plan - Diagnosis (1) Gram-negative bacteremia Is this a current diagnosis for this admission?: YesPlan: stable, pansens pseudomonas; this is likely source of his septic shock but unclear where the bacteremia originated as his urine culx is negative. review of his cxr shows a possible small airspace consolidation in RLL but no real symptoms of pneumonia now or previously; possibly GI source given his recent chemo and XRT with hx of diarrhea. continue current abx through 02/28. (2) Neutropenia with fever Is this a current diagnosis for this admission?: Yes (3) Sepsis Qualifiers: Sepsis type: sepsis due to unspecified organism Qualified Code(s): A41.9 - Sepsis, unspecified organism Is this a current diagnosis for this admission?: Yes (4) Afib Qualifiers: Atrial fibrillation type: paroxysmal Qualified Code(s): I48.0 - Paroxysmal atrial fibrillation Is this a current diagnosis for this admission?: Yes (5) DNR (do not resuscitate) Is this a current diagnosis for this admission?: Yes (6) Hypokalemia Is this a current diagnosis for this admission?: Yes (7) Hyponatremia Is this a current diagnosis for this admission?: Yes (8) Metastasis to bone Is this a current diagnosis for this admission?: Yes (9) Prostate cancer Is this a current diagnosis for this admission?: Yes (10) Anemia Qualifiers: Anemia type: unspecified type Qualified Code(s): D64.9 - Anemia, unspecified Is this a current diagnosis for this admission?: Yes - Time Time Spent with patient: 15-24 minutes Anticipated discharge: SNF Within: within 48 hours
[2017-02-19] MEDS: METOPROLOL TARTRATE 25 MG TABLET PO SCH ×2 (10:50→22:44)
[2017-02-19] MEDS: LACTOBACILLUS ACIDOPHILUS 250 MG TAB PO SCH ×2 (10:50→17:49)
[2017-02-19] MEDS: DOCUSATE SODIUM 100 MG CAPSULE PO SCH ×2 (10:51→17:49)
[2017-02-19] MEDS: POTASSIUM CHLORIDE 20 MEQ/15 ML UDCUP PO SCH ×2 (10:51→22:42)
[2017-02-19] MEDS: NORMAL SALINE 10 ML SDV (SCHEDULED) IV SCH ×2 (10:51→22:43)
[2017-02-19] MEDS: PREDNISONE 5 MG TABLET PO SCH ×2 (10:51→17:49)
[2017-02-19] MEDS: NYSTATIN/DEXAMETH/DIPHEN SUSP 120 ML PO SCH ×4 (10:58→22:43)
[2017-02-19] MEDS: LEVOFLOXACIN 750 MG/D5W RTU 750 MG/150 ML RTUPB IV SCH (17:49)
[2017-02-19] MEDS: SIMVASTATIN 10 MG TABLET PO SCH (22:42)
[2017-02-20 06:59] LABS: ANION GAP 7 (5-19); BLOOD UREA NITROGEN 11 mg/dL (7-20); CALCIUM 7.7 mg/dL (8.4-10.2); CARBON DIOXIDE 23 mmol/L (22-30); CHLORIDE 99 mmol/L (98-107); CREATININE RESULT 0.45 mg/dL (0.52-1.25); GLUCOSE 88 mg/dL (75-110); POTASSIUM 3.9 mmol/L (3.6-5.0); SODIUM 129.2 mmol/L (137-145)
[2017-02-20 07:16] LABS: HEMATOCRIT 32.7 % (37.9-51.0); HEMOGLOBIN 9.5 g/dL (13.5-17.0); MEAN CORPUSCULAR HEMOGLOBIN 28.7 pg (27.0-33.4); MEAN CORPUSCULAR HGB CONC 29.2 g/dL (32.0-36.0); MEAN CORPUSCULAR VOLUME 99 fl (80-97); RED BLOOD COUNT 3.32 10^6/uL (4.35-5.55); RED CELL DISTRIBUTION WIDTH 22.1 % (11.5-14.0); WHITE BLOOD COUNT 16.3 10^3/uL (4.0-10.5)
[2017-02-20] MEDS: LANSOPRAZOLE 30 MG TAB.RAP.DR PO SCH ×2 (07:18→17:57)
[2017-02-20 07:48] LABS: HGB HCT DIFFERENCE -4.2
[2017-02-20 07:58] LABS: BASOPHILS % (MANUAL) 0 % (0-2); EOSINOPHILS % (MANUAL) 0 % (0-6); LYMPHOCYTES % (MANUAL) 2 % (13-45); TOTAL CELLS COUNTED 100
[2017-02-20 08:01] LABS: ANISOCYTOSIS 2+; POIKILOCYTOSIS 2+; POLYCHROMASIA SLIGHT; TOXIC GRANULATION SLIGHT
[2017-02-20 08:02] LABS: BURR CELLS 1+; OVALOCYTES SLIGHT; TEAR DROP CELLS SLIGHT
[2017-02-20] MEDS ORDERED: NORMAL SALINE 1000 ML 1,000 ML IV PRN (09:03)
[2017-02-20] MEDS: METOPROLOL TARTRATE 25 MG TABLET PO SCH ×2 (11:21→22:46)
[2017-02-20] MEDS: LACTOBACILLUS ACIDOPHILUS 250 MG TAB PO SCH ×2 (11:22→18:04)
[2017-02-20] MEDS: POTASSIUM CHLORIDE 20 MEQ/15 ML UDCUP PO SCH ×2 (11:24→21:39)
[2017-02-20] MEDS: DOCUSATE SODIUM 100 MG CAPSULE PO SCH ×2 (11:24→18:05)
[2017-02-20] MEDS: NORMAL SALINE 10 ML SDV (SCHEDULED) IV SCH ×2 (11:25→21:39)
[2017-02-20] MEDS: PREDNISONE 5 MG TABLET PO SCH ×2 (11:25→17:58)
[2017-02-20] MEDS: NYSTATIN/DEXAMETH/DIPHEN SUSP 120 ML PO SCH ×4 (11:29→21:39)
--- NOTE | 2017-02-20 13:53 | PDOC PROGRESS REPORT ---
Subjective Progress Note for:: 02/20/17 Subjective:: reason for visit: f/u neutropenic fever, poss UTI, GNR bacteremia, met prostate CA, septic shock hospital course: per otehr's notes- "AARTI BARON is a 86 year old male past medical history metastatic prostate cancer, on systemic chemotherapy, essential hypertension and dyslipidemia; presents with fever, weakness and confusion since 4 AM this morning. Patient seen by Dr. Story, he has no other primary care physician. His last chemotherapy was a week ago on Tuesday. He denies any cough, chest congestion, nausea, vomiting diarrhea or dysuria. He has had prior episodes of neutropenic fever in the past. He was found to have temperature on arrival of 101 tympanic, heart rate in the 120s systolic blood pressure in the 80-90 systolic range. Blood pressure did improve with IV fluid bolus by the ER provider. He is presently awake, alert and able to answer questions. He has been started on IV broad-spectrum antibiotics after blood cultures were obtained. He was able to be wean off vasopressor overnight. His hypotension and fever has resolved. He denies any shortness of breath, cough or dyspnea. He has been able to eat and drink without nausea or vomiting. He had one episode of diarrhea last night. Stool was sent for cdiff which is reported as negative. He has had no further diarrhea. He denies any dysuria prior to admission. He admits to not eating or drinking much for the last 4 days prior to admission. He has chronic lymphedema and skin changes in the right lower leg from radiation therapy. He states this is unchanged from previously. His or son are not at the bedside at the present time. " i inherited his care Tuesday. Family reports he is improving, denies difficulty breathing, rash and no fevers documented since arrival to the floor, overall temp curve trending down. review of telemetry shows wide complex tachycardia c/w afib and hemiblock and RVR, no prior hx of same per family. last echo we have is 2013 shows EF 60-65% , grade 2/4 DD, mild MR, trace AR, mold TR, and no discussion of atria. repeat echo this admit: echo report on the chart, per dr krause EF 35-40%, mod global hypokinesia, mild MR, AR, TR and pulm HTN. He was given lopressor IV and started on oral regimen and slips in/out of afib intermittently ever since, always rate controlled. he tolerated transfusion of 1U PRBCs without incident. ROS: much more alert and interactive with his family, he denies chest pain, palpitations, and states his dry mouth and sore throat improved; very easily winded and fatigued with minimal exertion, still requires assistance to eat and his encourages him and assists. all systems reviewed, see above, remaining systems negative. Physical Exam Vital Signs: Temp Pulse Resp BP Pulse Ox 98.2 F 95 16 142/67 H 92 02/20/17 11:45 02/20/17 11:45 02/20/17 11:45 02/20/17 11:45 02/20/17 11:45 Intake & Output 02/19/17 02/20/17 02/21/17 06:59 06:59 06:59 Intake Total 986 683 414 Output Total 1999 Balance -1014 -1342 -186 Weight 75.2 kg 75.5 kg General appearance: PRESENT: no acute distress - well-developed, well-nourished Head exam: PRESENT: atraumatic, normocephalic, dry oral mucosa with asymmetric thin white, fluffy coating on left side of tongue Eye exam: PRESENT: EOMI. ABSENT: conjunctival injection, scleral icterus Neck exam: PRESENT: full ROM. ABSENT: JVD Respiratory exam: PRESENT: crackles - R>L bases, decreased breath sounds.unlabored, no stridor, or wheezes Cardiovascular exam: PRESENT: regular rhythm, no tachycardia. ABSENT: systolic murmur Pulses: PRESENT: normal radial pulses, normal dorsalis pedis pul GI/Abdominal exam: PRESENT: normal bowel sounds, soft. ABSENT: tenderness Extremities exam: PRESENT: trace edema legs Musculoskeletal exam: ABSENT: ambulatory - able to raise his leg off the bed but max assist with PT,no muscle tenderness Neurological exam: PRESENT: alert, awake, oriented to person, oriented to place. Psychiatric exam: PRESENT: appropriate affect, normal mood Skin exam: PRESENT: mottled - Rt leg that family is from prior radiating treatment, warm and moist Results Laboratory Results: 02/20/17 06:16 02/20/17 06:16 02/20/17 02/20/17 06:16 06:16 WBC 16.3 H RBC 3.32 L Hgb 9.5 L Hct 32.7 L MCV 99 H MCH 28.7 MCHC 29.2 L RDW 22.1 H Plt Count 111 L Seg Neutrophils % Not Reportable Lymphocytes % Not Reportable Monocytes % Not Reportable Eosinophils % Not Reportable Basophils % Not Reportable Absolute Neutrophils Not Reportable Absolute Lymphocytes Not Reportable Absolute Monocytes Not Reportable Absolute Eosinophils Not Reportable Absolute Basophils Not Reportable Sodium 129.2 L Potassium 3.9 Chloride 99 Carbon Dioxide 23 Anion Gap 7 BUN 11 Creatinine 0.45 L Est GFR ( Amer) > 60 Est GFR (Non-Af Amer) > 60 Glucose 88 Calcium 7.7 L 02/15/17 10:57 Blood Blood Culture - Final NO GROWTH IN 5 DAYS 02/15/17 11:04 Blood Blood Culture - Final NO GROWTH IN 5 DAYS 02/13/17 02/13/17 02/14/17 13:27 19:02 01:10 Troponin I 0.152 0.176 0.158 Assessment & Plan - Diagnosis (1) Gram-negative bacteremia Is this a current diagnosis for this admission?: Yes (2) Neutropenia with fever Is this a current diagnosis for this admission?: Yes (3) Sepsis Qualifiers: Sepsis type: sepsis due to unspecified organism Qualified Code(s): A41.9 - Sepsis, unspecified organism Is this a current diagnosis for this admission?: Yes (4) Afib Qualifiers: Atrial fibrillation type: paroxysmal Qualified Code(s): I48.0 - Paroxysmal atrial fibrillation Is this a current diagnosis for this admission?: Yes (5) DNR (do not resuscitate) Is this a current diagnosis for this admission?: Yes (6) Hypokalemia Is this a current diagnosis for this admission?: Yes (7) Hyponatremia Is this a current diagnosis for this admission?: Yes (8) Metastasis to bone Is this a current diagnosis for this admission?: Yes (9) Prostate cancer Is this a current diagnosis for this admission?: Yes (10) Anemia Qualifiers: Anemia type: unspecified type Qualified Code(s): D64.9 - Anemia, unspecified Is this a current diagnosis for this admission?: Yes - Time Time Spent with patient: 25-34 minutes - start low dose IVFs for one liter and monitor
[2017-02-20] MEDS: ACETAMINOPHEN SOLN 325 MG/10.15 ML UDCUP PO PRN (17:59)
[2017-02-20] MEDS: LEVOFLOXACIN 750 MG/D5W RTU 750 MG/150 ML RTUPB IV SCH (17:59)
[2017-02-20] MEDS: SIMVASTATIN 10 MG TABLET PO SCH (21:39)
[2017-02-21 06:20] LABS: ANION GAP 5 (5-19); BLOOD UREA NITROGEN 13 mg/dL (7-20); CALCIUM 7.5 mg/dL (8.4-10.2); CARBON DIOXIDE 25 mmol/L (22-30); CHLORIDE 98 mmol/L (98-107); CREATININE RESULT 0.47 mg/dL (0.52-1.25); GLUCOSE 110 mg/dL (75-110); POTASSIUM 4.1 mmol/L (3.6-5.0); SODIUM 128.4 mmol/L (137-145)
[2017-02-21 06:36] LABS: HEMATOCRIT 31.9 % (37.9-51.0); HEMOGLOBIN 10.7 g/dL (13.5-17.0); HGB HCT DIFFERENCE 0.2; MEAN CORPUSCULAR HEMOGLOBIN 32.7 pg (27.0-33.4); MEAN CORPUSCULAR HGB CONC 33.5 g/dL (32.0-36.0); MEAN CORPUSCULAR VOLUME 98 fl (80-97); RED BLOOD COUNT 3.27 10^6/uL (4.35-5.55); RED CELL DISTRIBUTION WIDTH 21.3 % (11.5-14.0); WHITE BLOOD COUNT 9.7 10^3/uL (4.0-10.5)
[2017-02-21 07:13] LABS: ANISOCYTOSIS 3+; BASOPHILS % (MANUAL) 0 % (0-2); EOSINOPHILS % (MANUAL) 0 % (0-6); LYMPHOCYTES % (MANUAL) 4 % (13-45); OVALOCYTES SLIGHT; POIKILOCYTOSIS 1+; POLYCHROMASIA SLIGHT; TEAR DROP CELLS SLIGHT; TOTAL CELLS COUNTED 100
[2017-02-21] MEDS: LANSOPRAZOLE 30 MG TAB.RAP.DR PO SCH ×2 (07:38→17:18)
[2017-02-21] MEDS: LACTOBACILLUS ACIDOPHILUS 250 MG TAB PO SCH ×2 (09:49→17:18)
[2017-02-21] MEDS: NYSTATIN/DEXAMETH/DIPHEN SUSP 120 ML PO SCH ×4 (09:49→21:51)
[2017-02-21] MEDS: DOCUSATE SODIUM 100 MG CAPSULE PO SCH ×2 (09:49→17:18)
[2017-02-21] MEDS: POTASSIUM CHLORIDE 20 MEQ/15 ML UDCUP PO SCH ×2 (09:49→21:50)
[2017-02-21] MEDS: PREDNISONE 5 MG TABLET PO SCH ×2 (09:49→17:18)
[2017-02-21] MEDS: NORMAL SALINE 10 ML SDV (SCHEDULED) IV SCH ×2 (09:50→21:50)
--- NOTE | 2017-02-21 09:54 | RADIOLOGY REPORT (SQ) ---
EXAM DESCRIPTION: CHEST SINGLE VIEW COMPLETED DATE/TIME: 02/21/2017 9:17 am REASON FOR STUDY: cough COMPARISON: 01/25/2017 EXAM PARAMETERS: NUMBER OF VIEWS: One view. TECHNIQUE: Single frontal radiographic view of the chest acquired. RADIATION DOSE: NA LIMITATIONS: None. FINDINGS: LUNGS AND PLEURA: Worsening abnormal density in left lung base consistent with pneumonia. Mild changes are noted on the right with some improvement in the base. No significant effusion. . MEDIASTINUM AND HILAR STRUCTURES: No masses. Contour normal. HEART AND VASCULAR STRUCTURES: Heart normal in size. Normal vasculature. BONES: No acute findings. HARDWARE: Left-sided PICC catheter with tip in superior vena cava. OTHER: No other significant finding. IMPRESSION: Worsening abnormal air space density in the left base consistent with pneumonia. TECHNICAL DOCUMENTATION: JOB ID: [id number]
[2017-02-21] MEDS: METOPROLOL TARTRATE 25 MG TABLET PO SCH ×2 (12:01→22:33)
--- NOTE | 2017-02-21 14:22 | PDOC PROGRESS REPORT ---
Subjective Progress Note for:: 02/21/17 Subjective:: reason for visit: f/u neutropenic fever, poss UTI, GNR bacteremia, met prostate CA, septic shock hospital course: per otehr's notes- "AARTI BARON is a 86 year old male past medical history metastatic prostate cancer, on systemic chemotherapy, essential hypertension and dyslipidemia; presents with fever, weakness and confusion since 4 AM this morning. Patient seen by Dr. Story, he has no other primary care physician. His last chemotherapy was a week ago on Tuesday. He denies any cough, chest congestion, nausea, vomiting diarrhea or dysuria. He has had prior episodes of neutropenic fever in the past. He was found to have temperature on arrival of 101 tympanic, heart rate in the 120s systolic blood pressure in the 80-90 systolic range. Blood pressure did improve with IV fluid bolus by the ER provider. He is presently awake, alert and able to answer questions. He has been started on IV broad-spectrum antibiotics after blood cultures were obtained. He was able to be wean off vasopressor overnight. His hypotension and fever has resolved. He denies any shortness of breath, cough or dyspnea. He has been able to eat and drink without nausea or vomiting. He had one episode of diarrhea last night. Stool was sent for cdiff which is reported as negative. He has had no further diarrhea. He denies any dysuria prior to admission. He admits to not eating or drinking much for the last 4 days prior to admission. He has chronic lymphedema and skin changes in the right lower leg from radiation therapy. He states this is unchanged from previously. His or son are not at the bedside at the present time. " i inherited his care Tuesday. Family reports he is improving, denies difficulty breathing, rash and no fevers documented since arrival to the floor, overall temp curve trending down. review of telemetry shows wide complex tachycardia c/w afib and hemiblock and RVR, no prior hx of same per family. last echo we have is 2013 shows EF 60-65% , grade 2/4 DD, mild MR, trace AR, mold TR, and no discussion of atria. repeat echo this admit: echo report on the chart, per dr krause EF 35-40%, mod global hypokinesia, mild MR, AR, TR and pulm HTN. He was given lopressor IV and started on oral regimen and slips in/out of afib intermittently ever since, always rate controlled. he tolerated transfusion of 1U PRBCs without incident. seemed on the dry side 7/2 so given 1L IVF over 10 hrs but this morning seems wet again with increased congestion and secretions and worsening edema. has very poor oncotic pressures and easily third spaces fluids. stat cxr shows a possible developing infiltrate in LLL but no fevers and his wbc's rising steadily after the neulasta given early in his course making them unreliable as clinical indicator. ROS: much more alert and interactive with his family, he denies chest pain, palpitations, and states his dry mouth and sore throat minimally improved; very easily winded and fatigued with minimal exertion though he will deny it, still requires assistance to eat and his encourages him and assists. all systems reviewed, see above, remaining systems negative. Physical Exam Vital Signs: Temp Pulse Resp BP Pulse Ox 97.5 F 78 18 137/65 H 96 02/21/17 11:37 02/21/17 11:37 02/21/17 11:37 02/21/17 11:37 02/21/17 11:37 Intake & Output 02/20/17 02/21/17 02/22/17 06:59 06:59 06:59 Intake Total 683 916 477 Output Total 2024 4262 800 Balance -1342 -984 -323 Weight 75.5 kg 75.5 kg General appearance: PRESENT: no acute distress - well-developed, well-nourished Head exam: PRESENT: atraumatic, normocephalic, moist oral mucosa with asymmetric thin white, fluffy coating on left side of tongue Eye exam: PRESENT: EOMI. ABSENT: conjunctival injection, scleral icterus Neck exam: PRESENT: full ROM. ABSENT: JVD Respiratory exam: PRESENT: rales at L>R bases, decreased breath sounds. unlabored, no stridor, or wheezes Cardiovascular exam: PRESENT: regular rhythm, no tachycardia. ABSENT: systolic murmur Pulses: PRESENT: normal radial pulses, normal dorsalis pedis pul GI/Abdominal exam: PRESENT: normal bowel sounds, soft. ABSENT: tenderness Extremities exam: PRESENT: asymmetric L>R edema legs Musculoskeletal exam: ABSENT: ambulatory - able to raise his leg off the bed but max assist with PT,no muscle tenderness Neurological exam: PRESENT: alert, awake, oriented to person, oriented to place. Psychiatric exam: PRESENT: appropriate affect, normal mood Skin exam: PRESENT: mottled - Rt leg that family is from prior radiating treatment, warm and moist Results Laboratory Results: 02/21/17 05:49 02/21/17 05:49 02/21/17 02/21/17 05:49 05:49 WBC 9.7 RBC 3.27 L Hgb 10.7 L Hct 31.9 L MCV 98 H MCH 32.7 MCHC 33.5 RDW 21.3 H Plt Count 108 L Seg Neutrophils % Not Reportable Lymphocytes % Not Reportable Monocytes % Not Reportable Eosinophils % Not Reportable Basophils % Not Reportable Absolute Neutrophils Not Reportable Absolute Lymphocytes Not Reportable Absolute Monocytes Not Reportable Absolute Eosinophils Not Reportable Absolute Basophils Not Reportable Sodium 128.4 L Potassium 4.1 Chloride 98 Carbon Dioxide 25 Anion Gap 5 BUN 13 Creatinine 0.47 L Est GFR ( Amer) > 60 Est GFR (Non-Af Amer) > 60 Glucose 110 Calcium 7.5 L 02/15/17 10:57 Blood Blood Culture - Final NO GROWTH IN 5 DAYS 02/15/17 11:04 Blood Blood Culture - Final NO GROWTH IN 5 DAYS 02/13/17 02/13/17 02/14/17 13:27 19:02 01:10 Troponin I 0.152 0.176 0.158 Impressions: Interventional Vascular Procedure 02/14/17 00:00 IMPRESSION: SUCCESSFUL PLACEMENT OF A 5 FR DUAL LUMEN 41 CM PICC IN THE left basilic VEIN. PICC Line Insertion 02/14/17 11:26 IMPRESSION: SUCCESSFUL PLACEMENT OF A 5 FR DUAL LUMEN 41 CM PICC IN THE left basilic VEIN. Chest X-Ray 02/21/17 08:37 IMPRESSION: Worsening abnormal air space density in the left base consistent with pneumonia. Assessment & Plan - Diagnosis (1) Abnormal CXR (chest x-ray) Is this a current diagnosis for this admission?: YesPlan: difficult to ascertain whether pneumonia or asymmetric pulmonary edema after IVFs given. already on levaquin which would be troubling if pneumonia developed. hold on accelerating abx for now and repeat cxr and cbc in morning. if he spikes fever then will have to reconsider. (2) Gram-negative bacteremia Is this a current diagnosis for this admission?: YesPlan: stable, pansens pseudomonas; this is likely source of his septic shock but unclear where the bacteremia originated as his urine culx is negative. review of his cxr shows a possible small airspace consolidation in RLL initially and now in the LLL; possibly GI source given his recent chemo and XRT with hx of diarrhea. continue levaquin through 02/28. (3) Neutropenia with fever Is this a current diagnosis for this admission?: YesPlan: resolved, ANC >1K; one dose of neupogen given and trend is up with other treatments noted. continue to monitor CBC (4) Afib Qualifiers: Atrial fibrillation type: paroxysmal Qualified Code(s): I48.0 - Paroxysmal atrial fibrillation Is this a current diagnosis for this admission?: YesPlan: new onset and likely related to the stress from above. continue betablocker and monitor HR with goal <120 but with careful monitoring of his BPs given recent hypotension/shock. no anticoagulation due to low plts. no ddimer as this will undoubtedly be elevated in the setting of sepsis with underlying cancer; can't anticoagulate a PE anyway due to low plts and Hg. (5) Anemia Qualifiers: Anemia type: unspecified type Qualified Code(s): D64.9 - Anemia, unspecified Is this a current diagnosis for this admission?: YesPlan: likely 2/2 recent chemo complicated by adenoCA of the prostate and poor oral intake. improved with transfusion. (6) DNR (do not resuscitate) Is this a current diagnosis for this admission?: Yes (7) Hypokalemia Is this a current diagnosis for this admission?: YesPlan: resolved with treatment (8) Hyponatremia Is this a current diagnosis for this admission?: YesPlan: fluctuates and likely due to fluid shifts, possibly complicated by pulmonic process; if he doesn't improve, consider ct chest to better characterize. (9) Metastasis to bone Is this a current diagnosis for this admission?: Yes (10) Prostate cancer Is this a current diagnosis for this admission?: Yes (11) Sepsis Qualifiers: Sepsis type: sepsis due to unspecified organism Qualified Code(s): A41.9 - Sepsis, unspecified organism Is this a current diagnosis for this admission?: YesPlan: with shock; resolved. - Time Time Spent with patient: 25-34 minutes Medications reviewed and adjusted accordingly: Yes - Plan Summary Plan Summary: accepted at [facility] when stable for rehab placement.
[2017-02-21] MEDS: LEVOFLOXACIN 750 MG/D5W RTU 750 MG/150 ML RTUPB IV SCH (17:17)
[2017-02-21] MEDS: SIMVASTATIN 10 MG TABLET PO SCH (21:50)
[2017-02-22 04:59] LABS: ABSOLUTE LYMPHOCYTES (AUTO) 0.4 10^3/uL (0.5-4.7); ABSOLUTE MONOCYTES (AUTO) 0.5 10^3/uL (0.1-1.4); HEMATOCRIT 28.5 % (37.9-51.0); HEMOGLOBIN 9.8 g/dL (13.5-17.0); HGB HCT DIFFERENCE 0.9; LYMPHOCYTES % (AUTO) 5.2 % (13-45); MEAN CORPUSCULAR HEMOGLOBIN 33.1 pg (27.0-33.4); MEAN CORPUSCULAR HGB CONC 34.2 g/dL (32.0-36.0); MEAN CORPUSCULAR VOLUME 97 fl (80-97); MONOCYTES % (AUTO) 6.8 % (3-13); RED BLOOD COUNT 2.95 10^6/uL (4.35-5.55); RED CELL DISTRIBUTION WIDTH 21.6 % (11.5-14.0)
[2017-02-22] MEDS: LANSOPRAZOLE 30 MG TAB.RAP.DR PO SCH ×2 (05:14→18:27)
[2017-02-22 05:37] LABS: ANION GAP 6 (5-19); BLOOD UREA NITROGEN 12 mg/dL (7-20); CALCIUM 7.3 mg/dL (8.4-10.2); CARBON DIOXIDE 24 mmol/L (22-30); CHLORIDE 95 mmol/L (98-107); CREATININE RESULT 0.49 mg/dL (0.52-1.25); GLUCOSE 97 mg/dL (75-110); POTASSIUM 4.3 mmol/L (3.6-5.0); SODIUM 125.4 mmol/L (137-145)
--- NOTE | 2017-02-22 08:24 | RADIOLOGY REPORT (SQ) ---
EXAM DESCRIPTION: CHEST SINGLE VIEW COMPLETED DATE/TIME: 02/22/2017 8:10 am REASON FOR STUDY: FU POSS PNEUMONIA LLL COMPARISON: 02/21/2017. 02/14/2017. FINDINGS: Single-view chest AP portable upright timed 0755 hours. Persistent volume loss and airspace disease most focally in the left lower lobe. Patchy airspace opa cities are otherwise noted in both lung hughes, also similar. No pneumothorax. Left PICC line remains in place. IMPRESSION: Stable exam with infiltrates as above. TECHNICAL DOCUMENTATION: JOB ID: [id number]
[2017-02-22] MEDS: LACTOBACILLUS ACIDOPHILUS 250 MG TAB PO SCH ×2 (09:28→18:27)
[2017-02-22] MEDS: DOCUSATE SODIUM 100 MG CAPSULE PO SCH ×2 (09:29→18:27)
[2017-02-22] MEDS: POTASSIUM CHLORIDE 20 MEQ/15 ML UDCUP PO SCH ×2 (09:29→20:52)
[2017-02-22] MEDS: PREDNISONE 5 MG TABLET PO SCH ×2 (09:29→18:27)
[2017-02-22] MEDS: NYSTATIN/DEXAMETH/DIPHEN SUSP 120 ML PO SCH ×4 (09:29→22:42)
[2017-02-22] MEDS: NORMAL SALINE 10 ML SDV (SCHEDULED) IV SCH ×2 (09:30→20:54)
[2017-02-22] MEDS: METOPROLOL TARTRATE 25 MG TABLET PO SCH ×2 (11:59→23:20)
[2017-02-22] MEDS: LEVOFLOXACIN 750 MG/D5W RTU 750 MG/150 ML RTUPB IV SCH (18:25)
--- NOTE | 2017-02-22 18:32 | PDOC PROGRESS REPORT ---
Subjective Progress Note for:: 02/22/17 Subjective:: reason for visit: f/u neutropenic fever, poss UTI, GNR bacteremia, met prostate CA, septic shock hospital course: per otehr's notes- "AARTI BARON is a 86 year old male past medical history metastatic prostate cancer, on systemic chemotherapy, essential hypertension and dyslipidemia; presents with fever, weakness and confusion since 4 AM this morning. Patient seen by Dr. Story, he has no other primary care physician. His last chemotherapy was a week ago on Tuesday. He denies any cough, chest congestion, nausea, vomiting diarrhea or dysuria. He has had prior episodes of neutropenic fever in the past. He was found to have temperature on arrival of 101 tympanic, heart rate in the 120s systolic blood pressure in the 80-90 systolic range. Blood pressure did improve with IV fluid bolus by the ER provider. He is presently awake, alert and able to answer questions. He has been started on IV broad-spectrum antibiotics after blood cultures were obtained. He was able to be wean off vasopressor overnight. His hypotension and fever has resolved. He denies any shortness of breath, cough or dyspnea. He has been able to eat and drink without nausea or vomiting. He had one episode of diarrhea last night. Stool was sent for cdiff which is reported as negative. He has had no further diarrhea. He denies any dysuria prior to admission. He admits to not eating or drinking much for the last 4 days prior to admission. He has chronic lymphedema and skin changes in the right lower leg from radiation therapy. He states this is unchanged from previously. His or son are not at the bedside at the present time. " i inherited his care Tuesday. Family reports he is improving, denies difficulty breathing, rash and no fevers documented since arrival to the floor, overall temp curve trending down. review of telemetry shows wide complex tachycardia c/w afib and hemiblock and RVR, no prior hx of same per family. last echo we have is 2013 shows EF 60-65% , grade 2/4 DD, mild MR, trace AR, mold TR, and no discussion of atria. repeat echo this admit: echo report on the chart, per dr krause EF 35-40%, mod global hypokinesia, mild MR, AR, TR and pulm HTN. He was given lopressor IV and started on oral regimen and slips in/out of afib intermittently ever since, always rate controlled. he tolerated transfusion of 1U PRBCs without incident. seemed on the dry side 7/2 so given 1L IVF over 10 hrs but this morning seems wet again with increased congestion and secretions and worsening edema. has very poor oncotic pressures and easily third spaces fluids. stat cxr shows a possible developing infiltrate in LLL but no fevers and his wbc's rising steadily after the neulasta given early in his course making them unreliable as clinical indicator. , The patient's review of systems is essentially unremarkable. Physical Exam Vital Signs: Temp Pulse Resp BP Pulse Ox 98.0 F 93 18 140/65 H 97 02/22/17 15:56 02/22/17 15:56 02/22/17 15:56 02/22/17 15:56 02/22/17 17:59 Intake & Output 02/21/17 02/22/17 02/23/17 06:59 06:59 06:59 Intake Total 916 903 Output Total 1900 1450 Balance -984 -547 Weight 75.5 kg 76.3 kg General appearance: PRESENT: no acute distress, cooperative Head exam: PRESENT: atraumatic Eye exam: PRESENT: EOMI Teeth exam: PRESENT: edentulous Neck exam: PRESENT: full ROM Respiratory exam: PRESENT: clear to auscultation aracely, crackles Cardiovascular exam: PRESENT: RRR GI/Abdominal exam: PRESENT: normal bowel sounds, soft Rectal exam: PRESENT: deferred Gentrourinary exam: PRESENT: ecchymosis Neurological exam: PRESENT: awake Psychiatric exam: PRESENT: appropriate affect Results Laboratory Results: 02/22/17 04:05 02/22/17 04:05 02/22/17 02/22/17 04:05 04:05 WBC 8.0 RBC 2.95 L Hgb 9.8 L Hct 28.5 L MCV 97 MCH 33.1 MCHC 34.2 RDW 21.6 H Plt Count 125 L Seg Neutrophils % 88.0 H Lymphocytes % 5.2 L Monocytes % 6.8 Eosinophils % 0.0 Basophils % 0.0 Absolute Neutrophils 7.0 Absolute Lymphocytes 0.4 L Absolute Monocytes 0.5 Absolute Eosinophils 0.0 Absolute Basophils 0.0 Sodium 125.4 L Potassium 4.3 Chloride 95 L Carbon Dioxide 24 Anion Gap 6 BUN 12 Creatinine 0.49 L Est GFR ( Amer) > 60 Est GFR (Non-Af Amer) > 60 Glucose 97 Calcium 7.3 L 02/13/17 02/13/17 02/14/17 13:27 19:02 01:10 Troponin I 0.152 0.176 0.158 Impressions: Interventional Vascular Procedure 02/14/17 00:00 IMPRESSION: SUCCESSFUL PLACEMENT OF A 5 FR DUAL LUMEN 41 CM PICC IN THE left basilic VEIN. PICC Line Insertion 02/14/17 11:26 IMPRESSION: SUCCESSFUL PLACEMENT OF A 5 FR DUAL LUMEN 41 CM PICC IN THE left basilic VEIN. Chest X-Ray 02/22/17 07:00 IMPRESSION: Stable exam with infiltrates as above. Assessment & Plan - Diagnosis (1) Fever Qualifiers: Fever type: unspecified Qualified Code(s): R50.9 - Fever, unspecified Is this a current diagnosis for this admission?: Yes (2) Septicemia due to bacteroides Is this a current diagnosis for this admission?: No (3) Prostate cancer Is this a current diagnosis for this admission?: Yes (4) Neutropenic fever Is this a current diagnosis for this admission?: Yes (5) Metastasis to bone Is this a current diagnosis for this admission?: Yes (6) Gram-negative bacteremia Is this a current diagnosis for this admission?: Yes - Time Time Spent with patient: 15-24 minutes - Inpatient Certification Medical Necessity: Need for IV Antibiotics - Plan Summary Plan Summary: Presented to the hospital with sepsis and bacteremia with Pseudomonas. He does appear to be remarkably improved. His neutropenic fever has resolved. His chest x-ray today is stable. I do not feel that he needs antibiotics broadened for healthcare associated pneumonia. At this point in time I think the patient is improving and we will work on placement.
[2017-02-22] MEDS: SIMVASTATIN 10 MG TABLET PO SCH (20:51)
[2017-02-23] MEDS: LANSOPRAZOLE 30 MG TAB.RAP.DR PO SCH (06:43)
[2017-02-23] MEDS: NORMAL SALINE 10 ML SDV (AFTER EACH USE) IV PRN (06:43)
[2017-02-23 09:15] LABS: ANION GAP 6 (5-19); BLOOD UREA NITROGEN 15 mg/dL (7-20); CALCIUM 7.5 mg/dL (8.4-10.2); CARBON DIOXIDE 23 mmol/L (22-30); CHLORIDE 94 mmol/L (98-107); CREATININE RESULT 0.46 mg/dL (0.52-1.25); GLUCOSE 93 mg/dL (75-110); POTASSIUM 4.5 mmol/L (3.6-5.0); SODIUM 123.2 mmol/L (137-145)
[2017-02-23] MEDS: PREDNISONE 5 MG TABLET PO SCH (09:59)
[2017-02-23] MEDS: DOCUSATE SODIUM 100 MG CAPSULE PO SCH (09:59)
[2017-02-23] MEDS: POTASSIUM CHLORIDE 20 MEQ/15 ML UDCUP PO SCH (09:59)
[2017-02-23] MEDS: NORMAL SALINE 10 ML SDV (SCHEDULED) IV SCH (09:59)
[2017-02-23] MEDS: LACTOBACILLUS ACIDOPHILUS 250 MG TAB PO SCH (09:59)
[2017-02-23] MEDS: NYSTATIN/DEXAMETH/DIPHEN SUSP 120 ML PO SCH ×2 (10:00→13:50)
[2017-02-23] MEDS: METOPROLOL TARTRATE 25 MG TABLET PO SCH (10:02)
--- NOTE | 2017-02-23 13:31 | PDOC DISCHARGE SUMMARY ---
General - Admit/Disc Date/PCP Admission Date/Primary Care Provider: 02/13/17 11:46 AMANDO SILVA, DO Discharge Date: 02/23/17 - Discharge Diagnosis (1) Fever Is this a current diagnosis for this admission?: Yes (2) Prostate cancer Is this a current diagnosis for this admission?: Yes (3) Neutropenic fever Is this a current diagnosis for this admission?: Yes (4) Metastasis to bone Is this a current diagnosis for this admission?: Yes (5) Gram-negative bacteremia Is this a current diagnosis for this admission?: Yes (6) Sepsis Is this a current diagnosis for this admission?: Yes (7) Hyponatremia Is this a current diagnosis for this admission?: Yes (8) Afib Is this a current diagnosis for this admission?: Yes (9) Anemia Is this a current diagnosis for this admission?: Yes (10) Abnormal CXR (chest x-ray) Is this a current diagnosis for this admission?: Yes - Additional Information Resuscitation Status: Do Not Resuscitate Discharge Diet: Cardiac Discharge Activity: Activity As Tolerated Home Medications: Meclizine HCl 25 mg PO Q8H PRN 09/08/14 Omeprazole 20 mg PO BID 09/08/14 Oxycodone HCl/Acetaminophen [Oxycodone-Acetaminophen 5-325] 1 tab PO Q8 PRN Prednisone 5 mg PO BID 02/13/17 Simvastatin 40 mg PO QHS 02/13/17 Levofloxacin [Levaquin 750 mg Tablet] 750 mg PO DAILY #10 tab 02/23/17 Metoprolol Tartrate [Lopressor 25 mg Tablet] 25 mg PO Q12@1100,2300 #30 tablet 02/23/17 History of Present Illness Patient complains of: Fever, weakness and confusion History of Present Illness: AARTI BARON is a 86 year old male past medical history metastatic prostate cancer, on systemic chemotherapy, essential hypertension and dyslipidemia; presents with fever, weakness and confusion since 4 AM this morning. Patient seen by Dr. Story, he has no other primary care physician. His last chemotherapy was a week ago on Tuesday. He denies any cough, chest congestion , nausea, vomiting diarrhea or dysuria. He has had prior episodes of neutropenic fever in the past. He was found to have temperature on arrival of 101 tympanic, heart rate in the 120s systolic blood pressure in the 80-90 systolic range. Blood pressure did improve with IV fluid bolus by the ER provider. He is presently awake, alert and able to answer questions. He has been started on IV broad-spectrum antibiotics after blood cultures were obtained. Hospital Course Hospital Course: hospital course: per other's notes- "AARTI BARON is a 86 year old male past medical history metastatic prostate cancer, on systemic chemotherapy, essential hypertension and dyslipidemia; presents with fever, weakness and confusion since 4 AM this morning. Patient seen by Dr. Story, he has no other primary care physician. His last chemotherapy was a week ago on Tuesday. He denies any cough, chest congestion, nausea, vomiting diarrhea or dysuria. He has had prior episodes of neutropenic fever in the past. He was found to have temperature on arrival of 101 tympanic, heart rate in the 120s systolic blood pressure in the 80-90 systolic range. Blood pressure did improve with IV fluid bolus by the ER provider. He is presently awake, alert and able to answer questions. He has been started on IV broad-spectrum antibiotics after blood cultures were obtained. He was able to be wean off vasopressor overnight. His hypotension and fever has resolved. He denies any shortness of breath, cough or dyspnea. He has been able to eat and drink without nausea or vomiting. He had one episode of diarrhea last night. Stool was sent for cdiff which is reported as negative. He has had no further diarrhea. He denies any dysuria prior to admission. He admits to not eating or drinking much for the last 4 days prior to admission. He has chronic lymphedema and skin changes in the right lower leg from radiation therapy. He states this is unchanged from previously. His or son are not at the bedside at the present time. " i inherited his care Tuesday. Family reports he is improving, denies difficulty breathing, rash and no fevers documented since arrival to the floor, overall temp curve trending down. review of telemetry shows wide complex tachycardia c/w afib and hemiblock and RVR, no prior hx of same per family. last echo we have is 2013 shows EF 60-65% , grade 2/4 DD, mild MR, trace AR, mold TR, and no discussion of atria. repeat echo this admit: echo report on the chart, per dr krause EF 35-40%, mod global hypokinesia, mild MR, AR, TR and pulm HTN. He was given lopressor IV and started on oral regimen and slips in/out of afib intermittently ever since, always rate controlled. he tolerated transfusion of 1U PRBCs without incident. seemed on the dry side 02/20 so given 1L IVF over 10 hrs but this morning seems wet again with increased congestion and secretions and worsening edema. has very poor oncotic pressures and easily third spaces fluids. stat cxr shows a possible developing infiltrate in LLL but no fevers and his wbc's rising steadily after the neulasta given early in his course making them unreliable as clinical indicator. The patient has been back to baseline as of 02/21/17. He has persistent but stable hyponatremia. This has not been further evaluated. He will be discharged to home with home health for physical therapy. He will complete an additional 10 days of levaquin for bacteremia with Pseudomonas. Physical Exam Vital Signs: Temp Pulse Resp BP Pulse Ox 98.6 F 91 18 124/55 L 93 02/23/17 11:28 02/23/17 11:28 02/23/17 11:28 02/23/17 11:28 02/23/17 11:28 Intake & Output 02/22/17 02/23/17 02/24/17 06:59 06:59 06:59 Intake Total 903 437 440 Output Total 1450 700 625 Balance -547 -263 -185 Weight 76.3 kg 75.6 kg General appearance: PRESENT: no acute distress, cooperative Head exam: PRESENT: atraumatic Eye exam: PRESENT: EOMI Mouth exam: PRESENT: moist, neck supple Respiratory exam: PRESENT: crackles Cardiovascular exam: PRESENT: RRR GI/Abdominal exam: PRESENT: normal bowel sounds, soft Neurological exam: PRESENT: alert, awake Psychiatric exam: PRESENT: appropriate affect Additional comments: Noted to have significant purpura on the right lower extremity. This is stable. Results Laboratory Results: 02/22/17 04:05 02/23/17 08:47 02/23/17 02/23/17 07:42 08:47 Sodium Cancelled 123.2 L Potassium Cancelled 4.5 Chloride Cancelled 94 L Carbon Dioxide Cancelled 23 Anion Gap Cancelled 6 BUN Cancelled 15 Creatinine Cancelled 0.46 L Est GFR ( Amer) Cancelled > 60 Est GFR (Non-Af Amer) Cancelled > 60 Glucose Cancelled 93 Calcium Cancelled 7.5 L 02/13/17 02/13/17 02/14/17 13:27 19:02 01:10 Troponin I 0.152 0.176 0.158 Impressions: Interventional Vascular Procedure 02/14/17 00:00 IMPRESSION: SUCCESSFUL PLACEMENT OF A 5 FR DUAL LUMEN 41 CM PICC IN THE left basilic VEIN. PICC Line Insertion 02/14/17 11:26 IMPRESSION: SUCCESSFUL PLACEMENT OF A 5 FR DUAL LUMEN 41 CM PICC IN THE left basilic VEIN. Chest X-Ray 02/22/17 07:00 IMPRESSION: Stable exam with infiltrates as above. Plan Discharge Plan: Patient will resume his home medications. The patient will complete an additional 10 days of oral antibiotics, and, for Pseudomonas bacteremia. He will need to follow-up with his primary care provider and oncologist within 1 week. The patient did experience atrial fibrillation with rapid ventricular response. He has been treated with oral metoprolol which will be continued at discharge. He is not felt to be a candidate for anticoagulation. The patient is being discharged to home with home health/ [place] physical therapy. Time Spent: Greater than 30 Minutes
[2017-02-23 14:03] VITALS: BP 116/56
== END 2017-02-23 15:05 | disposition home health service (06) | DRG 872 ==
LOC: ER 10:23 → EH 11:46 → UNDOADMIN 12:41 → ICU 16:21 → 3S 02-15 01:25
PROVIDERS: ADMIT Family Medicine; ATTEND Family Medicine
PROC: 02HV33Z Insertion of Infusion Device into Superior Vena Cava, Percutaneous Approach (ICD-10-PCS; principal; 2017-02-14)
PROC: B548ZZA Ultrasonography of Superior Vena Cava, Guidance (ICD-10-PCS; 2017-02-14)
DX: A41.52 Sepsis due to Pseudomonas (principal); C79.51 Secondary malignant neoplasm of bone; E87.1 Hypo-osmolality and hyponatremia; C61 Malignant neoplasm of prostate; E87.6 Hypokalemia; I48.0 Paroxysmal atrial fibrillation; D70.9 Neutropenia, unspecified; R50.81 Fever presenting with conditions classified elsewhere; I89.0 Lymphedema, not elsewhere classified; Z66 Do not resuscitate; D64.9 Anemia, unspecified; K21.9 Gastro-esophageal reflux disease without esophagitis; I10 Essential (primary) hypertension; E78.5 Hyperlipidemia, unspecified; Z79.899 Other long term (current) drug therapy
CPT/HCPCS: 36415; 36430; 36569; 51702; 71010; 76937; 80048; 80053; 80202; 81001; 82040; 82272; 82550; 82553; 83735; 84100; 84484; 85025; 86850; 86900; 86901; 86920; 87040; 87045; 87077; 87086; 87186; 87205; 87493; 89055; 93005; 93010; 93306; 96365; 99285; G8978-GP; G8979-GP; J0692; J1442; J1642; J1720; J1956; J2270; J2543; J3370; J3475; J3480; J3490; J7030; J7050; J7060; J7512; P9016